=== PATIENT | male | born 1965 | race Caucasian/White ===

== ENCOUNTER → 2017-05-11 | Outpatient (CLI) | payer BC, OTHER ==
[~2017-05-11] VITALS: Ht 182.9 cm; Wt 117.9 kg
[~2017-05-11] MED LIST: ACTO30TA15 PO; ASPI81TA21 PO; FURO40TA2 PO; GLIM4TAB PO; INSUDET SC; LIDOCAINE 2% INJ 100 MG/5 ML SDV (FOR ANES.) As Ordered ONE; LOSA50TA20 PO; MAGN400C3 PO; NS 1,000 ML IV ONE; PROPOFOL 500 MG/50 ML VIAL As Ordered ONE
--- NOTE | 2017-05-11 09:58 | ROOR ---
Patient Name: Miguel Orta Procedure Date: 05/11/2017 9:39 AM Date of : 1965 Age: 51 Room: [facility] Gender: Male Note Status: Finalized Procedure: Total Colonoscopy to Cecum Indications: Screening for colorectal malignant neoplasm Providers: Amado Jesus MD Referring MD: Geovanny Man NP Requesting Provider: Medicines: Monitored Anesthesia Care Complications: No immediate complications. Procedure: Pre-Anesthesia Assessment: - The heart rate, respiratory rate, oxygen saturations, blood pressure, adequacy of pulmonary ventilation, and response to care were monitored throughout the procedure. The Colonoscope was introduced through the anus and advanced to the cecum, identified by appendiceal orifice and ileocecal valve. The colonoscopy was performed without difficulty. The patient tolerated the procedure well. The quality of the bowel preparation was good. Findings: The perianal and digital rectal examinations were normal. Non-bleeding internal hemorrhoids were found during retroflexion. The hemorrhoids were small and Grade I (internal hemorrhoids that do not prolapse). No other significant abnormalities were identified in a careful examination of the remainder of the colon. The exam was otherwise without abnormality on direct and retroflexion views. Impression: - Non-bleeding internal hemorrhoids. - The examination was otherwise normal on direct and retroflexion views. - No specimens collected. - The exam was otherwise normal to the cecum. Recommendation: - Patient has a contact number available for emergencies. The signs and symptoms of potential delayed complications were discussed with the patient. Return to normal activities tomorrow. Written discharge instructions were provided to the patient. - High fiber diet. - Discharge patient to home. - Continue present medications. - Repeat colonoscopy in 10 years for screening purposes. - Return to referring physician. - The findings and recommendations were discussed with the patient's family. Amado Jesus MD Amado Jesus MD 05/11/2017 9:58:39 AM This report has been signed electronically. Number of Addenda: 0 Note Initiated On: 05/11/2017 9:39 AM Estimated Blood Loss: Estimated blood loss: none.
[2017-05-11 10:30] VITALS: BP 137/74
== END | disposition home or self-care (01) ==
LOC: M OPP 08:00
PROVIDERS: ATTEND Internal Medicine Gastroenterology
DX: Z12.11 Encounter for screening for malignant neoplasm of colon (principal); K64.0 First degree hemorrhoids; I10 Essential (primary) hypertension; E78.5 Hyperlipidemia, unspecified; E10.9 Type 1 diabetes mellitus without complications; Q61.2 Polycystic kidney, adult type; Z87.442 Personal history of urinary calculi; Z79.82 Long term (current) use of aspirin; Z79.84 Long term (current) use of oral hypoglycemic drugs; Z79.4 Long term (current) use of insulin; Z79.899 Other long term (current) drug therapy

== ENCOUNTER → 2017-09-12 | Outpatient (CLI) | payer BC, OTHER ==
[~2017-09-12] MED LIST changes: -LIDOCAINE 2% INJ 100 MG/5 ML SDV (FOR ANES.) As Ordered ONE; -NS 1,000 ML IV ONE; -PROPOFOL 500 MG/50 ML VIAL As Ordered ONE
[2017-09-12 13:03] LABS: ALBUMIN 3.9 GM/DL (3.2-5.2); ALBUMIN/GLOBULIN RATIO 1.26 (1.00-1.93); BILIRUBIN,TOTAL 0.4 MG/DL (0.2-1.0); CALCIUM LEVEL 9.1 MG/DL (8.5-10.1); CREATININE FOR GFR 3.27 MG/DL (0.70-1.30); GLOMERULAR FILTRATION RATE 21.1 (>56); MAGNESIUM LEVEL 2.8 MG/DL (1.8-2.4)
[2017-09-12 13:04] LABS: POTASSIUM SERUM 5.2 MEQ/L (3.5-5.1)
[2017-09-13 14:18] LABS: PSA TOTAL 3.1 ng/mL (0.0-4.0)
== END ==
LOC: M LRY 09:57
PROVIDERS: ATTEND Nurse Practitioner Family
DX: E83.42 Hypomagnesemia (principal); Z12.5 Encounter for screening for malignant neoplasm of prostate; E11.9 Type 2 diabetes mellitus without complications; E78.00 Pure hypercholesterolemia, unspecified; I10 Essential (primary) hypertension

== ENCOUNTER → 2019-06-10 | Outpatient (CLI) | payer BC, OTHER ==
[~2019-06-10] MED LIST changes: -LOSA50TA20 PO; +LOSA50TA88 PO
--- NOTE | 2019-06-11 12:08 | REP ---
Bilateral upper extremity arterial and venous Doppler ultrasound: History: Vein mapping study. End-stage renal disease. Pre arteriovenous fistula. Venous findings: There is no evidence of venous thrombosis in either upper extremity. Right upper extremity vein diameter chart: Upper humerus basilic 3.6 mm, cephalic 3.3 mm Lower humerus basilic 2.7 mm, cephalic 2.7 mm Upper forearm basilic 1.8 mm, cephalic 2.4 mm Lower forearm basilic 1.6 mm, cephalic 1.9 mm Median cubital 2.9 mm Left upper extremity vein diameter chart: Upper humerus basilic 2.7 mm, cephalic 0.2 mm Lower humerus basilic 2.1 mm, cephalic 3.4 mm Upper forearm basilic 2.4 mm, cephalic 1.6 mm Lower forearm basilic 2.0 mm, cephalic 2.1 mm Median cubital 2.4 mm Arterial findings: Normal triphasic Doppler wave forms are seen in the arteries of the upper extremities bilaterally. There is no evidence of stenosis or occlusion. Velocity and vessel diameter chart right upper extremity arteries: Axillary artery PSV 129 cm/S, 5.5 mm Brachial artery 141 cm/S, 5.1 mm Proximal radial artery 91 cm/S, 3.0 mm Distal radial artery 103 cm/S, 2.4 mm Proximal ulnar artery 83 cm/S, 2.2 mm Distal ulnar artery 67 cm/S, 2.2 mm Velocity and vessel diameter chart, left upper extremity arteries: Axillary artery 113 cm/S, 6.0 mm Brachial artery 191 cm/S, 4.5 mm Proximal radial artery 111 cm/S, 2.9 mm Distal radial artery 94 cm/S, 1.4 mm Proximal ulnar artery 123 cm/S, 4.3 mm Distal ulnar artery 102 cm/S, 2.3 mm. Electronically Signed by Claudio Rodriguez MD 06/11/2019 09:11 A
== END ==
LOC: M RAD 12:19
PROVIDERS: ATTEND Internal Medicine Nephrology
DX: N18.6 End stage renal disease (principal)

== ENCOUNTER 2019-06-20 08:45 | Day surgery (SDC) | payer BC, OTHER ==
[~2019-06-20] VITALS: Ht 182.9 cm; Wt 122.5 kg
[~2019-06-20 08:45] MED LIST changes: +AMLO10TA PO; -GLIM4TAB PO; +GLIM4TAB5 PO; +HYDR-3910 PO; +PROAAER10 INH; +SIMV40TA20 PO; +TERA2CAP3 PO
[2019-06-20] MEDS ORDERED: NS 1,000 ML IV ONE (10:00)
[2019-06-20] MEDS ORDERED: LIDOCAINE 2% INJ 100 MG/5 ML SDV (FOR ANES.) As Ordered ONE (10:54)
[2019-06-20] MEDS ORDERED: ONDANSETRON 4MG/2ML VIAL (J2405) As Ordered ONE (10:54)
[2019-06-20] MEDS ORDERED: propofoL 200 MG/20 ML VIAL As Ordered ONE (10:54)
[2019-06-20] MEDS ORDERED: MIDAZOLAM INJ 2 MG/2 ML VIAL (J2250) As Ordered ONE (10:55)
[2019-06-20] MEDS ORDERED: fentaNYL 100 MCG/2 ML INJECTION (J3010) As Ordered ONE (10:55)
[2019-06-20] MEDS ORDERED: BUPIVACAINE HCL 0.5% 10 ML VIAL As Ordered ONE (11:38)
[2019-06-20] MEDS ORDERED: LIDOCAINE 2% MDV 20 ML VIAL As Ordered ONE (11:38)
[2019-06-20] MEDS ORDERED: HEPARIN SOD (PORCINE) 5000 UNITS/ML VIAL As Ordered ONE (11:38)
[2019-06-20 13:30] VITALS: BP 172/81
--- NOTE | 2019-06-24 16:19 | ROOPDOC ---
[facility] Report Of Operation Report of Operation DATE OF PROCEDURE: 06/20/2019 PREOPERATIVE DIAGNOSES: Chronic renal insufficiency nearing End-stage renal disease requiring access for renal replacement therapy via hemodialysis POSTOPERATIVE DIAGNOSES: Chronic renal insufficiency nearing End-stage renal disease requiring access for renal replacement therapy via hemodialysis PROCEDURE: Left brachiocephalic autogenous arteriovenous fistula creation. SURGEON: Dr. Carmen Marie MD SOLID W[employer] FACILITY SUPERVISOR: None INDICATION: Patient is a 54-year-old male with chronic renal insufficiency nearing end-stage renal disease. Patient was evaluated for access for renal replacement therapy and the patient wishes to undergo peritoneal dialysis as his primary form of renal replacement therapy. Recommendation was made to undergo creation of a autogenous arteriovenous fistula as well as using his peritoneal dialysis as his primary form of renal replacement therapy. The peritoneal dialysis catheter will be placed as the patient approaches the need for renal replacement therapy The procedure was described and explained to the patient in detail including drawing of pictures demonstrating the procedure and the anatomy. Risks, benefits and alternative treatment options were discussed with the patient. Benefits included but were not limited to having a functioning arteriovenous fistula for hemodialysis access and removal of tunneled central venous catheter once the fistula is successfully being used. Alternative treatment options included but were not limited to no intervention with continued conservative management. Risks included but were not limited to infection, bleeding, failure of arteriovenous to maintain patency with thrombosis, failure of arteriovenous fi stula to mature requiring secondary intervention, steal syndrome, anesthetic complication, bruising, scarring, nerve damage, possible need for transfusion of blood products,, possible need for further open surgical intervention, cerebrovascular accident, myocardial infarction, pulmonary embolus , deep venous thrombosis, reaction or complication from the prepping and draping materials, numbness, tingling, swelling of the extremity, loss of limb, loss of life and poor outcome. Patient's questions were answered. Patient voices understanding of the risks, benefits and alternative treatment options. Patient voices acceptance of these risks, benefits and alternative treatment options and consents to proceed with arterial venous fistula formation. No promises were made to the patient or his family regarding the outcome and/or results of the procedure. ANESTHESIA: Local Mac. IVF: 200 mL ESTIMATED BLOOD LOSS: 20 mL. HEPARIN:None PROTAMINE:None COMPLICATIONS:None DRAINS:None SPECIMENS:None IMPLANTS:None FINDINGS: The cephalic vein was anastomosed to the brachial artery with dual outflow through the cephalic vein into both thek and cephalic veins in the upper arm as well as retrograde flow into the cephalic vein in the forearm. DESCRIPTION OF PROCEDURE: Patient was taken to operating room, placed supine on the operating room table, and the patient was prepped and draped in a standard surgical fashion. A time-out was then conducted by myself and the team members in the room confirming the correct patient, procedure and laterality. A tourniquet was then applied to the left upper arm to dilate the cephalic vein. An incision was then made at the antecubital fossa after the overlying tissue were anesthetized with 1% lidocaine mixed with half percent Marcaine. The cephalic vein and brachial artery were sharply dissected proximally and distally and encircled with vessel loops. The cephalic vein was then transected as far distal as possible with the remnant ligated with a 2-0 silk suture. The cephalic vein was then dilated using heparinized saline. The cephalic vein was brought to the brachial artery and anastomosed to the brachial artery in an end to side fashion using 6-0 Prolene suture after an arteriotomy was made in the brachial artery and elongated with gan scissors. There was good flow noted in the fistula at the completion of the anastomosis using Doppler ultrasound. Hemostasis was obtained after which the incision was closed using 2-0 Vicryl to approximate the deeper layers and the skin was approximated using 3-0 Monocryl in a running subcuticular fashion. Steri-Strips and dressings were applied. The patient tolerated the procedure well. All instrument, sponge and needle counts were correct at the end of the case. There were no complications. Dr. Marie was present for and directed the entire case. Patient was transferred to the recovery room awake, alert, extubated and in stable condition. The left hand was well perfused with 2+ radial and ulnar pulses palpable. Iván Marie MD Jun 20, 2019 09:42
[2019-08-05] MEDS ORDERED: CETI10CH PO (14:31)
[2019-08-05] MEDS ORDERED: CALC1CAP31 PO (14:31)
[2019-08-05] MEDS ORDERED: MAGN500T6 PO (14:31)
== END 2019-06-20 13:39 | disposition home or self-care (01) ==
LOC: M SDC 08:45
PROVIDERS: ATTEND Surgery Vascular Surgery
DX: N18.5 Chronic kidney disease, stage 5 (principal); E11.22 Type 2 diabetes mellitus with diabetic chronic kidney disease; I15.0 Renovascular hypertension; Q61.2 Polycystic kidney, adult type; E78.5 Hyperlipidemia, unspecified; R60.0 Localized edema; Z68.37 Body mass index [BMI] 37.0-37.9, adult; Z79.899 Other long term (current) drug therapy; Z79.82 Long term (current) use of aspirin; Z79.4 Long term (current) use of insulin; Z87.442 Personal history of urinary calculi
CPT/HCPCS: 36821; J2250; J2405; J3010

== ENCOUNTER → 2019-07-04 | Outpatient (REF) | payer OTHER ==
[~2019-07-04] MED LIST changes: +GLIM4TAB PO; -GLIM4TAB5 PO; +SIMV40TA2 PO; -SIMV40TA20 PO
[2019-07-04 18:02] LABS: CHOLESTEROL LEVEL 122 MG/DL (<200); CHOLESTEROL RISK RATIO 3.812 (<5); HDL CHOLESTEROL 32 MG/DL (>40); LDL CHOLESTEROL 46 MG/DL (<100); NON-HDL-C 90 MG/DL; TRIGLYCERIDES LEVEL 221 MG/DL (<150)
[2019-07-07 10:02] LABS: HEPATITIS B SURFACE ANTIBODY NEGATIVE (POSITIVE)
[2019-07-07 10:13] LABS: HEPATITIS B SURFACE ANTIGEN NEGATIVE (NEGATIVE)
[2019-07-07 10:42] LABS: HEPATITIS B CORE ANTIBODY IGM NEGATIVE (NEGATIVE)
== END ==
LOC: M LAB REF 17:14
PROVIDERS: ATTEND Internal Medicine Nephrology
DX: N18.6 End stage renal disease (principal); E78.00 Pure hypercholesterolemia, unspecified

== ENCOUNTER → 2019-08-12 | Outpatient (REF) | payer BC, OTHER ==
[~2019-08-12] MED LIST changes: +CALC1CAP31 PO; +CETI10CH PO; -GLIM4TAB PO; +GLIM4TAB3 PO; +HYDR-4571 PO; +MAGN500T6 PO
[2019-08-13 10:20] LABS: HEPATITIS B CORE ANTIBODY IGM NEGATIVE (NEGATIVE); HEPATITIS B SURFACE ANTIBODY NEGATIVE (POSITIVE); HEPATITIS B SURFACE ANTIGEN NEGATIVE (NEGATIVE)
== END ==
LOC: M LAB REF 13:09
PROVIDERS: ATTEND Internal Medicine Nephrology
DX: N18.6 End stage renal disease (principal)

== ENCOUNTER 2019-08-13 09:46 | Day surgery (SDC) | payer BC, OTHER ==
[~2019-08-13] VITALS: Ht 182.9 cm; Wt 120.7 kg
[~2019-08-13 09:46] MED LIST changes: -HYDR-4571 PO; +LR 1,000 ML IV ONE; +ceFAZolin SOD 2 GM in IV 1 EA IV ONE
[2019-08-13] MEDS ORDERED: dexameTHASONE 4 MG/ML 1ML VIAL (J1100) As Ordered ONE (10:20)
[2019-08-13] MEDS ORDERED: fentaNYL 250 MCG/5 ML INJECTION (J3010) As Ordered ONE (10:20)
[2019-08-13] MEDS ORDERED: ONDANSETRON 4MG/2ML VIAL (J2405) As Ordered ONE (10:20)
[2019-08-13] MEDS ORDERED: PROPOFOL 200 MG/20 ML VIAL As Ordered ONE (10:20)
[2019-08-13] MEDS ORDERED: ROCURONIUM BROMIDE 50 MG/5 ML VIAL As Ordered ONE (10:20)
[2019-08-13] MEDS ORDERED: SUGAMMADEX SODIUM 500 MG/5 ML VIAL (BRIDION) As Ordered ONE (10:20)
[2019-08-13] MEDS ORDERED: LIDOCAINE 2% INJ 100 MG/5 ML SDV (FOR ANES.) As Ordered ONE (10:20)
[2019-08-13] MEDS ORDERED: MIDAZOLAM INJ 2 MG/2 ML VIAL (J2250) As Ordered ONE (10:20)
[2019-08-13] MEDS ORDERED: LIDOCAINE 1% SDV INJ 30 ML VIAL As Ordered ONE (10:59)
[2019-08-13] MEDS ORDERED: HEPARIN SOD (PORCINE) 5000 UNITS/ML VIAL As Ordered ONE (10:59)
[2019-08-13] MEDS ORDERED: CISATRACURIUM 2MG/ML 5ML VIAL As Ordered ONE ×2 (11:26→12:46)
[2019-08-13] MEDS ORDERED: BUPIVACAINE HCL 0.25% 30 ML VIAL As Ordered ONE (13:21)
[2019-08-13] MEDS ORDERED: PHENYLephrine HCL 500 MCG/5 ML (100MCG/ML) SYRINGE (J2370) As Ordered ONE (13:29)
[2019-08-13] MEDS ORDERED: CALCIUM CHLORIDE 10% 1 GM/10 ML SYR As Ordered ONE (13:29)
[2019-08-13] MEDS ORDERED: ePHEDrine SULFATE 25 MG/5 ML(5MG/ML) SYRINGE As Ordered ONE (13:29)
[2019-08-13] MEDS ORDERED: NEOSTIGMINE 10 MG/10 ML VIAL (J2710) As Ordered ONE ×2 (13:30→13:31)
[2019-08-13] MEDS ORDERED: GLYCOPYRROLATE INJ 0.2 MG/ML 2 ML VIAL As Ordered ONE (13:30)
[2019-08-13] MEDS ORDERED: DEXTROSE 50% 50 ML SYRINGE As Ordered ONE (14:07)
[2019-08-13] MEDS ORDERED: oxyCODONE 5MG TAB PO PRN (14:45)
[2019-08-13] MEDS ORDERED: ONDANSETRON 4MG/2ML VIAL (J2405) IV PRN (14:45)
[2019-08-13] MEDS ORDERED: LR 1,000 ML IV SCH (14:45)
[2019-08-13] MEDS ORDERED: ACETAMINOPHEN TAB 650MG DOSE (2X325MG) PO PRN (14:45)
[2019-08-13] MEDS ORDERED: METOCLOPRAMIDE INJ 10MG/2ML VIAL (J2765) IV PRN (14:45)
[2019-08-13] MEDS ORDERED: fentaNYL 100 MCG/2 ML INJECTION (J3010) IV PRN (14:45)
[2019-08-13] MEDS ORDERED: HYDR-4571 PO (14:56)
[2019-08-13 15:33] VITALS: BP 133/63
[2019-08-13] MEDS ORDERED: NORCO, ANEXSIA 5/325MG TABLET (HYDROcodone/ACETAMINOPHEN) PO PRN (15:46)
--- NOTE | 2019-08-13 22:37 | ECGEPIP ---
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 No prior ECG available for comparison at the time of interpretation. Electronically Signed on 08-13-2019 22:36:42 EDT by Andi Alexander
--- NOTE | 2019-08-14 07:22 | RO ---
DATE OF PROCEDURE: 08/13/2019 PREOPERATIVE DIAGNOSIS: Chronic renal failure. POSTOPERATIVE DIAGNOSIS: Chronic renal failure. PROCEDURE PERFORMED: Implantation of continuous ambulatory peritoneal dialysis catheter. SURGEON: Dhiraj French MD LABORER DEMOLITION: ANESTHESIA: General. INDICATIONS FOR PROCEDURE: Patient is 54-year-old man with progressively worsening renal failure, now approaching end stage. He is now for implantation of a continuous ambulatory peritoneal dialysis catheter. OPERATIVE PROCEDURE: Patient was brought to the operating room and placed on the table in a supine position. He was placed under general endotracheal anesthesia. The patient's abdomen was prepped and draped in a sterile fashion. A site was selected in the left upper quadrant, several centimeters above the level of the umbilicus. A short paramedian incision was made on the left side overlying the rectus muscles. This was approximately 3-4 cm in length. The incision was deepened through the subcutaneous tissues using the cautery. The anterior rectus fascia was opened longitudinally and the muscles were spread with a clamp. The posterior fascia was identified and a small opening was made into the peritoneum. A pursestring suture of #2-0 Vicryl was placed. The 62 cm Hal pigtail CAPD catheter was placed over a long stylet and then inserted into the abdomen through this small opening into the peritoneum. This was performed while the patient was in a slight Trendelenburg position and the inferior edge of the opening in the peritoneum was elevated with an Allis clamp. After advancing the catheter perhaps 10-15 cm, the catheter was then slipped into the abdomen off of the stylet. The inner pledget was placed just outside the posterior layer of the rectus sheath. The pursestring suture was then tied down and then tied in a loop about the inner pledget. The rectus muscles were allowed to fall together. Hemostasis was ensured with cautery. The anterior rectus sheath was closed with #0 Vicryl. The catheter was then tunneled laterally and inferiorly to exit through a small stab wound in the skin and the second pledget was placed just beneath the level of the skin. The infusion adapter was applied to the catheter. Approximately 950 mL of saline were then infused through the catheter with the patient in a slight reverse Trendelenburg position. After the fluid had completely infused, the bag was dropped and there was excellent return of approximately 600-700 mL of fluid. While fluid was returning, the subcutaneous tissues at the incision were closed with buried #3-0 chromic and the skin edges approximated with a running #4-0 Vicryl. The catheter was filled with 1 mL at 5000 units/mL heparin and approximately 1.4 mL of sterile saline. A small clamp was applied to the catheter and the catheter was then plugged. Steri-Strips were applied to the incision. 0.25% Marcaine was infiltrated about both of his incisions. A chlorhexidine gluconate OpSite was applied at the catheter exit site and the catheter was coiled on top of this and covered with several 4x4 sponges. An occlusive dressing of tape was applied. The patient tolerated the procedure well. He was awakened in the operating room, extubated and moved to the recovery room in stable condition.
== END 2019-08-13 16:10 | disposition home or self-care (01) ==
LOC: M SDC 09:46
PROVIDERS: ATTEND Surgery
DX: N18.5 Chronic kidney disease, stage 5 (principal); I11.9 Hypertensive heart disease without heart failure; E78.5 Hyperlipidemia, unspecified; E11.9 Type 2 diabetes mellitus without complications; Z79.82 Long term (current) use of aspirin; Z79.899 Other long term (current) drug therapy; Z79.4 Long term (current) use of insulin; Q61.3 Polycystic kidney, unspecified
CPT/HCPCS: 49421; 93005; C1750; J0690; J1100; J2250; J2370; J2405; J2710; J3010

== ENCOUNTER → 2019-09-16 | Outpatient (CLI) | payer BC, OTHER ==
[~2019-09-16] MED LIST changes: +HYDR-4571 PO; -LR 1,000 ML IV ONE; -SIMV40TA2 PO; +SIMV40TA20 PO; -ceFAZolin SOD 2 GM in IV 1 EA IV ONE
--- NOTE | 2019-09-16 20:11 | ECHO ---
DATE OF PROCEDURE: 09/16/2019 REFERRING PHYSICIAN: Marlyn Harris MD INDICATION: Screening for renal transplant. Height 182 cm, weight 114 kg. DIMENSIONS: IVS: 1.2 LV: 4.9 LVPW: 1.3 LA: 3.9 Aorta: 3.6 RV: 4.2 Left atrial volume index: 20 Mitral E wave velocity: 79 A wave: 51 E prime septal: 7.4 E prime lateral: 9.6 FINDINGS: The study is of fair technical quality. The patient is in sinus rhythm. Left ventricle is normal size and systolic function, I estimate left ventricular ejection fraction (LVEF) around 60-65%. Mild left ventricular hypertrophy (LVH) is present. Right ventricle is normal size. Both atria appear normal. Aortic, mitral, tricuspid and pulmonic valves all appear structurally normal. No pericardial effusion is noted. Inferior vena cava is normal size. Aortic root and abdominal aorta appear normal. Aortic arch was not well seen. Doppler interrogation reveals competent aortic valve. There is trace mitral insufficiency. Tricuspid and pulmonic valves are also functionally intact. Mitral inflow pattern and tissue Doppler imaging of mitral annulus revealed probably normal diastolic function even though tissue Doppler velocities of mitral annulus are mildly reduced. CONCLUSIONS: 1. Study is of fair technical quality. 2. Normal LV size with mild left ventricular hypertrophy and normal LV systolic and probably also diastolic function. 3. No significant valvular disease. 4. Normal central venous pressure. 5. Unable to estimate pulmonary artery pressure but no signs to suggest pulmonary hypertension. COMMENT: Subacute bacterial endocarditis (SBE) prophylaxis is not recommended. Overall study most consistent with mild form of hypertensive heart disease.
== END ==
LOC: M CARPUL 10:39
PROVIDERS: ATTEND Transplant Surgery
DX: Z01.818 Encounter for other preprocedural examination (principal)

== ENCOUNTER → 2019-09-17 | Outpatient (CLI) | payer OTHER ==
--- NOTE | 2019-09-17 13:35 | REP ---
Clinical: Polycystic kidney disease for renal transplant. Technique: Axial noncontrast images from the lung bases to the pubic symphysis with coronal and sagittal re-formations. Comparison: 02/05/2014. Findings: Lung bases are clear. Visualized heart and pericardium normal. 4.0 cm benign appearing cyst in the lateral segment left lobe of the liver has increased since prior examination. Few smaller scattered hepatic cysts up to 9 mm are also identified and appear essentially stable. Spleen, pancreas, gallbladder, and bilateral adrenal glands are normal for noncontrast evaluation. Kidneys demonstrate innumerable simple and complex/proteinaceous cysts without perinephric stranding or hydronephrosis. There is a 15 mm calculus in the left ureteropelvic junction without associated hydronephrosis. The enteric system is without obstruction or acute inflammatory process. Scattered diverticula noted without acute diverticulitis. Normal terminal ileum and appendix identified in the right lower quadrant. Peritoneal dialysis catheter identified within the left shawene pelvis. Prostate gland is moderately enlarged with mild mass effect than on the bladder. The bladder itself is otherwise unremarkable. No ascites. No free air. No intraperitoneal or retroperitoneal adenopathy. Atherosclerotic changes to the aorta and vasculature noted without aneurysm. Musculoskeletal structures demonstrate degenerative changes. Impression: 1. Polycystic kidney disease with few hepatic cysts also noted. 2. A 15 mm calculus in the left UPJ without associated hydronephrosis or perinephric stranding. 3. Prostatomegaly. 4. Few scattered colonic diverticula without acute diverticulitis. Electronically Signed by Barry Montoya MD 09/17/2019 01:26 P
== END ==
LOC: M RAD 12:40
PROVIDERS: ATTEND Transplant Surgery
DX: Z01.818 Encounter for other preprocedural examination (principal); N18.6 End stage renal disease

== ENCOUNTER → 2020-01-08 | Outpatient (CLI) | payer BC, OTHER, MEDICARE ==
[~2020-01-08] MED LIST changes: -GLIM4TAB3 PO; +GLIM4TAB5 PO
--- NOTE | 2020-01-09 08:45 | REP ---
MR angiography the brain without contrast: History: End-stage renal disease. Pre transplant workup. Rule out aneurysm. Technique: 3-D [id number] MR angiography of the brain is acquired in the usual fashion and maximal intensity projection images were generated in rotational format about the vertical and horizontal axes. In addition, source axial T1-weighted images are viewed in cine mode. MR angiographic findings: Incidental note is made of low T1 signal intensity in the distribution of the right frontal lobe suggesting an infarction or subarachnoid cyst. Routine brain MRI study was recommended. This was accomplished at this setting and is dictated separately. The distal vertebral arteries are patent and co-dominant. Basilar artery is a little tortuous but widely patent. The posterior cerebral and superior cerebellar vessels are normal and symmetric. The distal internal carotid arteries are unremarkable. Anterior and middle cerebral arteries appear intact. There is no visible monet aneurysm or arteriovenous malformation. Impression: Encephalomalacia apparent in the right frontal lobe, otherwise unremarkable MR angiography the brain. Electronically Signed by Claudio Rodriguez MD 01/09/2020 08:36 A
--- NOTE | 2020-01-09 08:54 | REP ---
MRI BRAIN WITHOUT CONTRAST: HISTORY: Dependence on renal dialysis. Abnormality noted on MR angiography of the brain. No prior central nervous system imaging. TECHNIQUE: Axial and sagittal imaging planes are utilized for T1 and T2-weighted scans. Sequences include spin-echo, fast spin echo, FLAIR, and diffusion weighted sequences. MRI findings: No bony calvarial defect is appreciated. There is no evidence of intraorbital abnormality. Paranasal sinuses appear to be clear. Craniocervical junction and upper cervical cord are normal in appearance. There is a large well-defined area of old encephalomalacia in the right frontal lobe with slight enlargement of the right frontal horn of the lateral ventricle. This is consistent with an old infarction. In addition, there is a small lacunar infarct in the right basal ganglia and another in the dentate nucleus of the left basal ganglia. These are approximately 5 mm in size. There is no evidence of intracranial mass. No evidence of hemorrhage is seen. Diffusion weighted scans show no evidence of restricted diffusion to suggest acute ischemia. 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 Bilateral old lacunar infarcts. There are minimal small vessel changes. No acute intracranial abnormality. Electronically Signed by Claudio Rodriguez MD 01/09/2020 09:22 A
== END ==
LOC: M RAD 13:53
PROVIDERS: ATTEND Internal Medicine Nephrology
DX: Z01.818 Encounter for other preprocedural examination (principal); N18.6 End stage renal disease; Q18.6 Macrocheilia; Z86.73 Personal history of transient ischemic attack (TIA), and cerebral infarction without residual deficits; G93.89 Other specified disorders of brain

== ENCOUNTER → 2020-02-21 | Outpatient (CLI) | payer BC, OTHER, MEDICARE ==
[~2020-02-21] MED LIST changes: +MAGN50TA PO; +RENV2TAB PO; +TRAZ-252 PO; +VITA50005 PO; +[UNRECOGNIZED DRUG - CODE] PO
== END ==
LOC: M LABSMTC 08:48
PROVIDERS: ATTEND Anesthesiology
DX: Z01.818 Encounter for other preprocedural examination (principal); Z11.59 Encounter for screening for other viral diseases

== ENCOUNTER 2020-02-24 11:06 | Day surgery (SDC) | payer BC, OTHER, MEDICARE ==
[~2020-02-24] VITALS: Ht 182.9 cm; Wt 116.6 kg
[2020-02-24] MEDS ORDERED: SLF 3 ML SYR IV PRN (11:45)
[2020-02-24] MEDS ORDERED: MIDAZOLAM INJ 2MG/2ML VIAL (J2250 PER 1MG) As Ordered ONE ×2 (12:49→13:10)
[2020-02-24] MEDS ORDERED: LIDOCAINE VISCOUS 2% SOLN 15ML UDC As Ordered ONE ×2 (12:50→13:09)
[2020-02-24] MEDS ORDERED: LIDOCAINE VISCOUS 2% SOLN 15ML UDC MT ONE (13:45)
[2020-02-24] MEDS ORDERED: NS 1,000 ML IV SCH (13:45)
[2020-02-24] MEDS ORDERED: MIDAZOLAM INJ 2MG/2ML VIAL (J2250 PER 1MG) IV ONE ×2 (13:45)
[2020-02-24 13:50] VITALS: BP 132/61
[2020-02-24] MEDS ORDERED: SLF 3 ML SYR IV SCH (14:00)
--- NOTE | 2020-02-24 14:07 | T-ECHO ---
DATE OF PROCEDURE: 02/24/2020 INDICATION: Cryptogenic stroke. REFERRING PHYSICIAN: Andi Alexander MD PREPROCEDURE DIAGNOSIS: Cryptogenic stroke. POSTPROCEDURE DIAGNOSIS: Cryptogenic stroke, normal transesophageal echocardiogram (MADELINE). Negative bubble study for right to left intracardiac or intrathoracic shunting. PROCEDURE PERFORMED: Transesophageal echocardiogram with saline bubble study. PROCEDURE PERFORMED BY: Andi Alexander MD BUFFING WHEEL FORMER MACHINE: None. IV SEDATION: Midazolam 4 mg IV. COMPLICATIONS: None. PROCEDURE DESCRIPTION: The rhythm was sinus. The patient received viscus lidocaine to gargle and swallow. He received a total of midazolam 4 mg IV for light IV sedation. Esophageal intubation was accomplished without difficulty using a Theodore transesophageal echocardiogram probe. The left ventricle appeared to be normal in size and wall thickening. LV systolic function was normal. Left ventricular ejection fraction (LVEF) 65% by visual estimate. The right ventricle appeared normal in size and systolic function. No pericardial effusion. Atrial septum was intact anatomically and by color flow Doppler. Saline bubble study was performed using 8 mL of normal saline with 1 mL of the patient's own blood withdrawn from the IV site and 1 mL of air. This was then agitated back and forth between two 10 mL syringes via a 3-way stopcock. The saline bubble contrast was injected during Valsalva maneuver and as soon as bubbles appeared in the right atrium the patient released a Valsalva maneuver. No saline bubbles were seen traversing the atrial septum or entering the left atrium. All the cardiac valves were structurally and functionally normal. Specifically, the aortic valve was 3-cusp and without regurgitation or thickening or calcification. The mitral leaflets appeared structurally normal. Very mild mitral regurgitation was present and within physiologic limits. Tricuspid and pulmonic valves were normal. The pulmonic valve was only moderately well visualized. No color flow Doppler evidence for patent ductus arteriosus detected. No pericardial effusion. CONCLUSIONS: 1. Normal MADELINE. LVEF 65% by visual estimate. 2. No definite cardiac source of systemic embolism. 3. Bubble study negative for detection of r to left intracardiac or extracardiac shunting. 4. Normal distal aortic arch and descending thoracic aorta.
== END 2020-02-24 14:00 | disposition home or self-care (01) ==
LOC: M SDC 11:06
PROVIDERS: ATTEND Internal Medicine Cardiovascular Disease
DX: I63.9 Cerebral infarction, unspecified (principal); R94.31 Abnormal electrocardiogram [ECG] [EKG]; I11.0 Hypertensive heart disease with heart failure; E11.9 Type 2 diabetes mellitus without complications; N18.6 End stage renal disease; E78.2 Mixed hyperlipidemia; E66.09 Other obesity due to excess calories; Z79.899 Other long term (current) drug therapy
CPT/HCPCS: 93312; 93320; 93325; J2250

== ENCOUNTER → 2020-03-06 | Outpatient (CLI) | payer BC, OTHER, MEDICARE ==
[~2020-03-06] MED LIST changes: +ASPI81TA85 PO; +COLA100C5 PO; +LOSA25TA14 PO; +MUPI2OI EXT; +heparin PD
== END ==
LOC: M LABSMTC 09:10
PROVIDERS: ATTEND Anesthesiology
DX: Z01.818 Encounter for other preprocedural examination (principal); Z11.59 Encounter for screening for other viral diseases

== ENCOUNTER 2020-03-09 10:38 | Day surgery (SDC) | payer BC, OTHER, MEDICARE ==
[~2020-03-09] VITALS: Ht 182.9 cm; Wt 114.9 kg
[~2020-03-09 10:38] MED LIST changes: +LIDOCAINE 1% MDV 20ML VIAL SQ PRN; +LR 1,000 ML IV SCH; +MIDAZOLAM INJ 2MG/2ML VIAL (J2250 PER 1MG) As Ordered ONE; +NS 1,000 ML IV SCH; +ceFAZolin SOD 2 GM in IV 1 EA IV ONE; +fentaNYL 100 MCG/2 ML INJECTION (J3010) As Ordered ONE
[2020-03-09] MEDS ORDERED: LIDOCAINE 1% MDV 20ML VIAL As Ordered ONE (11:48)
[2020-03-09] MEDS ORDERED: D5W/0.2% SODIUM CHLORIDE 1,000 ML IV ONE (12:00)
[2020-03-09] MEDS ORDERED: ONDANSETRON 4MG/2ML VIAL As Ordered ONE (13:02)
--- NOTE | 2020-03-09 13:47 | RO ---
DATE OF PROCEDURE: 03/09/2020 PREOPERATIVE DIAGNOSIS: Cryptogenic stroke. POSTOPERATIVE DIAGNOSIS: Cryptogenic stroke. PROCEDURE PERFORMED: Implantation of a Medtronic implantable loop recorder. SURGEON: Andi Alexander MD CUSHION MAT MAKER: None. ANESTHESIA: Local/monitored anesthesia care. FINDINGS: Cryptogenic stroke. No specimens. Estimated blood loss: Less than 3 mL. No blood products replaced. No drains. No complications. DESCRIPTION OF PROCEDURE: The patient was prepped and draped over the left anterior chest. Lidocaine 1% was used for local anesthetic. An incision approximately 1 cm in length was made with a #15 blade at the left 4th interspace approximately 1 inch lateral to the left parasternal border. The guide on the insertion tool was then placed into the incision and advanced in a left lateral-caudal direction parallel to the skin within the subcutaneous fat. The insertion tool was rotated 180 degrees. The plunger was then placed into the insertion tool and used to advance the implantable loop recorder into the subcutaneous fat. The plunger was then removed and then the insertion tool was removed leaving the loop recorder in situ. The initial R wave measured 0.42 mV. The incision was temporarily approximated using a subcuticular #4-0 Biosyn suture placed subcuticular with free ends protruding from the skin 1 cm from the ends of the incision on either side. Next, three layers of Dermabond was applied. The Biosyn suture was then removed entirely by pulling it through the incision. The patient tolerated the procedure well without any immediate complications. The implantable loop recorder implanted was a Progeniq Reveal LINQ, model LNQ11 with serial #[id number].
[2020-03-09 14:00] VITALS: BP 142/72
== END 2020-03-09 14:16 | disposition home or self-care (01) ==
LOC: M SDC 10:38
PROVIDERS: ATTEND Internal Medicine Cardiovascular Disease
DX: I63.9 Cerebral infarction, unspecified (principal); I10 Essential (primary) hypertension; E78.5 Hyperlipidemia, unspecified; E11.9 Type 2 diabetes mellitus without complications; Z86.73 Personal history of transient ischemic attack (TIA), and cerebral infarction without residual deficits; N18.9 Chronic kidney disease, unspecified; Z79.4 Long term (current) use of insulin; Z79.82 Long term (current) use of aspirin; Z79.84 Long term (current) use of oral hypoglycemic drugs; Z79.899 Other long term (current) drug therapy
CPT/HCPCS: 33285; 36415; 84132; C1764; J0690; J2250; J2405; J3010

== ENCOUNTER → 2020-03-18 | Outpatient (CLI) | payer BC, MEDICARE ==
[~2020-03-18] MED LIST changes: -LIDOCAINE 1% MDV 20ML VIAL SQ PRN; -LR 1,000 ML IV SCH; -MIDAZOLAM INJ 2MG/2ML VIAL (J2250 PER 1MG) As Ordered ONE; -NS 1,000 ML IV SCH; -ceFAZolin SOD 2 GM in IV 1 EA IV ONE; -fentaNYL 100 MCG/2 ML INJECTION (J3010) As Ordered ONE
--- NOTE | 2020-03-19 06:18 | REP ---
Clinical: Renal transplant evaluation. Technique: Axial noncontrast images from the lung bases to the pubic symphysis with coronal and sagittal re-formations. Comparison: 09/17/2019. Findings: The lung bases are clear. Visualized heart and pericardium are normal. Stable scattered hepatic cysts are again identified including 4.3 cm cyst in the medial left hepatic lobe. Spleen, pancreas, gallbladder, and bilateral adrenal glands are normal. [place] kidneys again demonstrate polycystic kidney disease without acute perinephric stranding or hydroureteronephrosis. A presumed chronic obstructing 15 mm calculus is identified with in the left ureteropelvic junction along with 3 mm nonobstructing left intrarenal calculus. The enteric system is without obstruction or acute inflammatory process. Few scattered colonic diverticula noted without acute diverticulitis. Evidence for with catheter identified in the mid to lower pelvic cavity and mild amount of residual peritoneal fluid noted. No free air. No significant adenopathy or obvious mass lesion. Pelvis demonstrates normal bladder and mild prostatomegaly. Mild/early moderate atherosclerotic changes to the abdominal aorta and branch vessels noted. Surrounding musculoskeletal structures demonstrate age-related changes without focal osseous abnormality. Impression: 1. 15 mm calculus in the left ureteropelvic junction without associated acute perinephric stranding or hydronephrosis. 2. Polycystic kidney disease including scattered hepatic cysts measuring up to 4.3 cm. 3. Mild/moderate atherosclerotic disease. Electronically Signed by Barry Montoya MD 03/19/2020 06:10 A
== END ==
LOC: M RAD 07:24
DX: Z01.818 Encounter for other preprocedural examination (principal); Q63.1 Lobulated, fused and horseshoe kidney; K76.89 Other specified diseases of liver; N20.0 Calculus of kidney; Z76.82 Awaiting organ transplant status

== ENCOUNTER 2021-05-29 23:44 | Emergency (ER) | payer BC, MEDICARE ==
[~2021-05-29] VITALS: Ht 182.9 cm; Wt 110.2 kg
[~2021-05-29 23:44] MED LIST changes: -ASPI81TA85 PO; +ASPI81TA86 PO; +ERGO500029 PO; -VITA50005 PO
[2021-05-29 23:45] VITALS: BP 160/85
[2021-05-29] MEDS ORDERED: CARV6.25 PO (23:53)
[2021-05-29] MEDS ORDERED: TACR5CAP4 PO (23:53)
== END 2021-05-30 02:32 | disposition left against medical advice (07) ==
LOC: M ED 23:44
DX: Z53.21 Procedure and treatment not carried out due to patient leaving prior to being seen by health care provider (principal)

== ENCOUNTER → 2021-06-14 | Outpatient (REF) | payer BC, MEDICARE ==
[~2021-06-14] MED LIST changes: +CARV6.25 PO; +TACR5CAP4 PO
== END ==
LOC: M LAB REF 16:48
PROVIDERS: ATTEND Internal Medicine Nephrology
DX: E11.22 Type 2 diabetes mellitus with diabetic chronic kidney disease (principal); Q61.2 Polycystic kidney, adult type; Z94.0 Kidney transplant status

== ENCOUNTER → 2021-08-30 | Outpatient (REF) | payer BC, OTHER, MEDICARE ==
[~2021-08-30] MED LIST changes: +DOCU250C63 PO; +LOSA25TA13 PO; -LOSA25TA14 PO; +LOSA50TA28 PO; -LOSA50TA88 PO; -[UNRECOGNIZED DRUG - CODE] PO
== END ==
LOC: M LAB REF 13:19
PROVIDERS: ATTEND Nurse Practitioner Family
DX: Z94.0 Kidney transplant status (principal)

== ENCOUNTER 2021-10-03 07:36 | Outpatient (CLI) | payer MEDICARE, BC, OTHER ==
[~2021-10-03] VITALS: Ht 182.9 cm; Wt 110.0 kg
[~2021-10-03 07:36] MED LIST changes: -DOCU250C63 PO; -LOSA25TA13 PO; +LOSA25TA14 PO; -LOSA50TA28 PO; +LOSA50TA88 PO; +[UNRECOGNIZED DRUG - CODE] PO
[2021-10-03 07:45] VITALS: BP 144/65
[2021-10-03] MEDS ORDERED: BELATACEPT IV ONE (08:00)
[2021-10-03] MEDS ORDERED: NS IV ONE (08:00)
[2021-10-03 09:27] VITALS: BP 118/60
== END 2021-10-03 09:30 | disposition home or self-care (01) ==
LOC: M INFU 07:36
PROVIDERS: ATTEND Internal Medicine Nephrology
DX: Z94.0 Kidney transplant status (principal)
CPT/HCPCS: 83735; 96365; J0485

== ENCOUNTER → 2021-10-03 | Outpatient (REF) | payer BC, OTHER, MEDICARE | LOC: M LAB REF 13:57 | PROVIDERS: ATTEND Nurse Practitioner Family | DX: E83.42 Hypomagnesemia (principal) ==

== ENCOUNTER → 2021-10-05 | Outpatient (CLI) | payer MEDICARE, BC, OTHER ==
--- NOTE | 2021-10-05 09:04 | REP ---
INDICATION: PAIN IN LEFT THIGH COMPARISON: None. TECHNIQUE: Lopez scale and color Doppler evaluation using linear high frequency transducer. FINDINGS: Ultrasound examination of the left lower extremity deep venous structures from the common femoral vein through the popliteal vein demonstrates normal compressibility, flow and wave patterns in response to respiration and augmentation. Compressibility to the posterior tibial vein and peroneal vein noted. There is no evidence for deep venous thrombosis. Contralateral CFV is patent and normal. IMPRESSION: No evidence for deep venous thrombosis. <Electronically signed by Barry Montoya > 10/05/21 0900
== END ==
LOC: M RAD 07:31
PROVIDERS: ATTEND Nurse Practitioner Family
DX: M79.652 Pain in left thigh (principal)

== ENCOUNTER → 2021-10-13 | Outpatient (CLI) | payer MEDICARE, BC, OTHER ==
[~2021-10-13] MED LIST changes: +PROHANCE 279.3MG/ML 15ML VIAL As Ordered ONE; +PROHANCE 279.3MG/ML 5ML VIAL As Ordered ONE
--- NOTE | 2021-10-13 15:51 | REP ---
INDICATION: PAIN LT THIGH. COMPARISON: None. TECHNIQUE: Pre and post contrast 3T MRI of the left femur was performed utilizing various sequences. Gadolinium utilized: 10 cc ProHance FINDINGS: The cortical and marrow signal seen throughout the left femur is within normal limits. There is no evidence of a mass or mass effect. There is T2 hyper signal seen in the trochanteric tendono bursal region with a small fluid collection seen in conjunction with this. This measures approximately a cm. Gadolinium-enhanced imaging shows some enhancement of the region. The signal and morphologic appearance throughout the musculature is within normal limits. There is no abnormal intracompartmental or extra compartmental fluid collection or mass. All adipose tissue is seen to suppress normally on fat suppression sequences. All imaged flexor and extensor tendons are intact and of normal appearing low signal throughout. There is no abnormal periosteal signal, enhancement, or thickening. There is no evidence of a hip joint or knee joint effusion. IMPRESSION: There is evidence of trochanteric tendono bursitis. The examination is otherwise unremarkable. <Electronically signed by Moncho Billings > 10/13/21 9101
== END ==
LOC: M RAD 13:11
PROVIDERS: ATTEND Nurse Practitioner Family
DX: M79.652 Pain in left thigh (principal)
CPT/HCPCS: 73720; A9576

== ENCOUNTER 2021-10-31 07:38 | Outpatient (CLI) | payer MEDICARE, BC, OTHER ==
[~2021-10-31] VITALS: Ht 182.9 cm; Wt 110.0 kg
[~2021-10-31 07:38] MED LIST changes: +BELATACEPT IV ONE; +DOCU250C63 PO; +LOSA25TA13 PO; -LOSA25TA14 PO; +LOSA50TA28 PO; -LOSA50TA88 PO; +NS IV ONE; -PROHANCE 279.3MG/ML 15ML VIAL As Ordered ONE; -PROHANCE 279.3MG/ML 5ML VIAL As Ordered ONE; -[UNRECOGNIZED DRUG - CODE] PO
[2021-10-31 07:45] VITALS: BP 133/61
[2021-10-31 08:52] VITALS: BP 138/67
== END 2021-10-31 08:55 ==
LOC: M INFU 07:38
PROVIDERS: ATTEND Internal Medicine Nephrology
DX: Z94.0 Kidney transplant status (principal)
CPT/HCPCS: 96365; J0485

== ENCOUNTER → 2021-12-01 | Outpatient (CLI) | payer BC, OTHER, MEDICARE ==
[~2021-12-01] MED LIST changes: -BELATACEPT IV ONE; -NS IV ONE
== END ==
LOC: M WUC 10:40
PROVIDERS: ATTEND Physician Assistant
DX: J20.9 Acute bronchitis, unspecified (principal); R06.2 Wheezing

== ENCOUNTER 2021-12-06 07:52 | Outpatient (CLI) | payer BC, OTHER, MEDICARE ==
[~2021-12-06] VITALS: Ht 182.9 cm; Wt 113.6 kg
[~2021-12-06 07:52] MED LIST changes: +BELATACEPT IV ONE; +NS IV ONE
[2021-12-06] MEDS ORDERED: NS IV ONE (08:00)
[2021-12-06] MEDS ORDERED: BELATACEPT IV ONE (08:00)
[2021-12-06 08:09] VITALS: BP 154/69
[2021-12-06 09:45] VITALS: BP 151/68
== END 2021-12-06 09:45 | disposition home or self-care (01) ==
LOC: M INFU 07:52
PROVIDERS: ATTEND Internal Medicine Nephrology
DX: Z94.0 Kidney transplant status (principal)
CPT/HCPCS: 96365; J0485

== ENCOUNTER → 2021-12-07 | Outpatient (CLI) | payer BC, OTHER, MEDICARE ==
[~2021-12-07] MED LIST changes: -BELATACEPT IV ONE; -NS IV ONE
== END ==
LOC: M RAD 17:09
PROVIDERS: ATTEND Nurse Practitioner Family
DX: R91.8 Other nonspecific abnormal finding of lung field (principal); K76.89 Other specified diseases of liver; J18.9 Pneumonia, unspecified organism; R05.9 Cough, unspecified

== ENCOUNTER → 2021-12-28 | Outpatient (CLI) | payer BC, OTHER, MEDICARE ==
[2021-12-28 11:34] LABS: APPEARANCE, URINE CLEAR (CLEAR); BACTERIA, URINE AUTO NEGATIVE (NEGATIVE); BILIRUBIN, URINE AUTO NEGATIVE (NEGATIVE); BLOOD, URINE BLOOD NEGATIVE (NEGATIVE); COLOR, URINE STRAW (YELLOW); GLUCOSE, URINE (UA) AUTO 1+ mg/dL (NEGATIVE); KETONE, URINE AUTO NEGATIVE (NEGATIVE); LEUKOCYTE ESTERASE, URINE AUTO NEGATIVE (NEGATIVE); NITRITE, URINE AUTO NEGATIVE (NEGATIVE); PROTEIN, URINE AUTO NEGATIVE (NEGATIVE); RBC, URINE AUTO 0 /HPF (0-3); SPECIFIC GRAVITY URINE AUTO 1.009 (1.002-1.035); SQUAMOUS EPITHELIAL CELL UR AU 0 /HPF (0-6); UROBILINOGEN, URINE AUTO 0.2 mg/dL (0.0-2.0); WBC, URINE AUTO 0 /HPF (0-3)
[2021-12-28 11:41] LABS: BASO % 0.6 % (0.0-1.0); EOS % 0.6 % (0.0-3.0); HEMATOCRIT 44.7 % (42.0-52.0); HEMOGLOBIN 14.9 g/dl (13.5-17.5); LYMPH # 0.3 10^3/uL (1.5-5.0); LYMPH % 18.4 % (24.0-44.0); MEAN CORPUSCULAR HEMOGLOBIN 33.8 pg (27.0-33.0); MEAN CORPUSCULAR HGB CONC 33.3 g/dl (32.0-36.5); MEAN CORPUSCULAR VOLUME 101.4 fl (80.0-96.0); MONO # 0.2 10^3/uL (0.0-0.8); MONO % 9.2 % (2.0-8.0); NEUTROPHILS # 1.2 10^3/uL (1.5-8.5); NEUTROPHILS % 68.3 % (36.0-66.0); PLATELET COUNT, AUTOMATED 174 10^3/uL (150-450); RED BLOOD COUNT 4.41 10^6/uL (4.30-6.10); WHITE BLOOD COUNT 1.7 10^3/uL (4.0-10.0)
[2021-12-28 11:56] LABS: CREATININE,RANDOM URINE 43.3 MG/DL; TOTAL PROTEIN,RANDOM URINE 15.6 MG/DL (0.0-12.0)
[2021-12-28 12:07] LABS: ALBUMIN 3.6 GM/DL (3.2-5.2); CALCIUM LEVEL 9.1 MG/DL (8.5-10.1); CREATININE FOR GFR 1.34 MG/DL (0.70-1.30); GLOMERULAR FILTRATION RATE 58.3 (>56); MAGNESIUM LEVEL 2.3 MG/DL (1.8-2.4); PHOSPHORUS LEVEL 3.7 MG/DL (2.5-4.9); POTASSIUM SERUM 4.5 MEQ/L (3.5-5.1)
[2021-12-30 16:09] LABS: CMV QUANT DNA PCR (PLASMA) Negative (Negative)
== END ==
LOC: M LAB 10:33
PROVIDERS: ATTEND Internal Medicine
DX: Z94.0 Kidney transplant status (principal); N18.5 Chronic kidney disease, stage 5; D84.9 Immunodeficiency, unspecified; Z79.899 Other long term (current) drug therapy

== ENCOUNTER 2022-01-03 08:03 | Outpatient (CLI) | payer BC, OTHER, MEDICARE ==
[~2022-01-03] VITALS: Ht 182.9 cm; Wt 113.6 kg
[~2022-01-03 08:03] MED LIST changes: +BELATACEPT IV ONE; +NS IV ONE
[2022-01-03 08:54] VITALS: BP 175/88
[2022-01-03 10:16] VITALS: BP 163/76
== END 2022-01-03 10:15 | disposition home or self-care (01) ==
LOC: M INFU 08:03
PROVIDERS: ATTEND Internal Medicine Nephrology
DX: Z94.0 Kidney transplant status (principal)
CPT/HCPCS: 96365; J0485

== ENCOUNTER → 2022-01-03 | Outpatient (CLI) | payer BC, OTHER, MEDICARE ==
[2022-01-03 08:57] LABS: HEMATOCRIT 43.1 % (42.0-52.0); HEMOGLOBIN 14.2 g/dl (13.5-17.5); MEAN CORPUSCULAR HEMOGLOBIN 34.1 pg (27.0-33.0); MEAN CORPUSCULAR HGB CONC 32.9 g/dl (32.0-36.5); MEAN CORPUSCULAR VOLUME 103.4 fl (80.0-96.0); PLATELET COUNT, AUTOMATED 116 10^3/uL (150-450); RED BLOOD COUNT 4.17 10^6/uL (4.30-6.10); WHITE BLOOD COUNT 1.5 10^3/uL (4.0-10.0)
[2022-01-03 09:00] LABS: APPEARANCE, URINE CLEAR (CLEAR); BACTERIA, URINE AUTO NEGATIVE (NEGATIVE); BILIRUBIN, URINE AUTO NEGATIVE (NEGATIVE); BLOOD, URINE BLOOD NEGATIVE (NEGATIVE); COLOR, URINE STRAW (YELLOW); GLUCOSE, URINE (UA) AUTO 3+ mg/dL (NEGATIVE); KETONE, URINE AUTO NEGATIVE (NEGATIVE); LEUKOCYTE ESTERASE, URINE AUTO NEGATIVE (NEGATIVE); NITRITE, URINE AUTO NEGATIVE (NEGATIVE); PROTEIN, URINE AUTO NEGATIVE (NEGATIVE); RBC, URINE AUTO 0 /HPF (0-3); SPECIFIC GRAVITY URINE AUTO 1.018 (1.002-1.035); SQUAMOUS EPITHELIAL CELL UR AU 0 /HPF (0-6); UROBILINOGEN, URINE AUTO 0.2 mg/dL (0.0-2.0); WBC, URINE AUTO 0 /HPF (0-3)
[2022-01-03 09:20] LABS: ALBUMIN 3.4 GM/DL (3.2-5.2); CALCIUM LEVEL 8.9 MG/DL (8.5-10.1); CREATININE FOR GFR 1.4 MG/DL (0.70-1.30); GLOMERULAR FILTRATION RATE 55.4 (>56); MAGNESIUM LEVEL 2.3 MG/DL (1.8-2.4); PHOSPHORUS LEVEL 2.4 MG/DL (2.5-4.9); POTASSIUM SERUM 4.6 MEQ/L (3.5-5.1)
[2022-01-03 09:26] LABS: ATYPICAL LYMPH 6 % (0-5); BASOPHILS 1 % (0-1); EOSINOPHILS 3 % (0-3); LYMPHOCYTES 17 % (16-44); METAMYELOCYTES 2 % (0-0); MONOCYTES 2 % (0-5); MYELOCYTES 1 % (0-0); NEUTROPHILS 61 % (28-66)
[2022-01-03 09:27] LABS: ANISOCYTOSIS 2+; PLATELET ESTIMATE DECREASED (NORMAL)
[2022-01-03 09:29] LABS: TOXIC GRANULATION 1+
[2022-01-03 09:31] LABS: CREATININE,RANDOM URINE 45.5 MG/DL; TOTAL PROTEIN,RANDOM URINE 20.4 MG/DL (0.0-12.0)
[2022-01-05 14:14] LABS: CMV QUANT DNA PCR (PLASMA) Positive < 200 IU/mL (Negative)
== END ==
LOC: M LAB 08:11
PROVIDERS: ATTEND Internal Medicine
DX: Z94.0 Kidney transplant status (principal); N18.5 Chronic kidney disease, stage 5; D84.9 Immunodeficiency, unspecified; Z79.899 Other long term (current) drug therapy

== ENCOUNTER → 2022-01-10 | Outpatient (CLI) | payer BC, OTHER, MEDICARE ==
[~2022-01-10] MED LIST changes: -BELATACEPT IV ONE; -NS IV ONE
[2022-01-10 10:39] LABS: APPEARANCE, URINE CLEAR (CLEAR); BACTERIA, URINE AUTO NEGATIVE (NEGATIVE); BILIRUBIN, URINE AUTO NEGATIVE (NEGATIVE); BLOOD, URINE BLOOD 1+ (NEGATIVE); COLOR, URINE YELLOW (YELLOW); GLUCOSE, URINE (UA) AUTO 3+ mg/dL (NEGATIVE); KETONE, URINE AUTO NEGATIVE (NEGATIVE); LEUKOCYTE ESTERASE, URINE AUTO NEGATIVE (NEGATIVE); NITRITE, URINE AUTO NEGATIVE (NEGATIVE); PROTEIN, URINE AUTO 1+ mg/dL (NEGATIVE); RBC, URINE AUTO 1 /HPF (0-3); SPECIFIC GRAVITY URINE AUTO 1.014 (1.002-1.035); SQUAMOUS EPITHELIAL CELL UR AU 0 /HPF (0-6); UROBILINOGEN, URINE AUTO 0.2 mg/dL (0.0-2.0); WBC, URINE AUTO 2 /HPF (0-3)
[2022-01-10 10:43] LABS: BASO % 0.9 % (0.0-1.0); EOS % 3.5 % (0.0-3.0); HEMATOCRIT 44.1 % (42.0-52.0); HEMOGLOBIN 14.4 g/dl (13.5-17.5); LYMPH # 0.2 10^3/uL (1.5-5.0); LYMPH % 19.3 % (24.0-44.0); MEAN CORPUSCULAR HEMOGLOBIN 33.6 pg (27.0-33.0); MEAN CORPUSCULAR HGB CONC 32.7 g/dl (32.0-36.5); MONO # 0.2 10^3/uL (0.0-0.8); MONO % 14.9 % (2.0-8.0); NEUTROPHILS % 60.5 % (36.0-66.0); PLATELET COUNT, AUTOMATED 172 10^3/uL (150-450); RED BLOOD COUNT 4.28 10^6/uL (4.30-6.10); WHITE BLOOD COUNT 1.1 10^3/uL (4.0-10.0)
[2022-01-10 11:10] LABS: ALBUMIN 3.5 GM/DL (3.2-5.2); CALCIUM LEVEL 8.9 MG/DL (8.5-10.1); CREATININE FOR GFR 1.5 MG/DL (0.70-1.30); GLOMERULAR FILTRATION RATE 51.2 (>56); MAGNESIUM LEVEL 2.1 MG/DL (1.8-2.4); PHOSPHORUS LEVEL 2.9 MG/DL (2.5-4.9); POTASSIUM SERUM 4.8 MEQ/L (3.5-5.1)
[2022-01-10 11:11] LABS: NEUTROPHILS # 0.7 10^3/uL (1.5-8.5)
[2022-01-13 16:09] LABS: CMV QUANT DNA PCR (PLASMA) Negative (Negative)
== END ==
LOC: M LAB 09:44
PROVIDERS: ATTEND Internal Medicine
DX: Z94.0 Kidney transplant status (principal); N18.5 Chronic kidney disease, stage 5; D84.9 Immunodeficiency, unspecified; Z79.899 Other long term (current) drug therapy

== ENCOUNTER → 2022-01-17 | Outpatient (CLI) | payer BC, OTHER, MEDICARE ==
[2022-01-17 15:26] LABS: APPEARANCE, URINE CLEAR (CLEAR); BACTERIA, URINE AUTO NEGATIVE (NEGATIVE); BILIRUBIN, URINE AUTO NEGATIVE (NEGATIVE); BLOOD, URINE BLOOD NEGATIVE (NEGATIVE); COLOR, URINE YELLOW (YELLOW); GLUCOSE, URINE (UA) AUTO 1+ mg/dL (NEGATIVE); KETONE, URINE AUTO NEGATIVE (NEGATIVE); LEUKOCYTE ESTERASE, URINE AUTO NEGATIVE (NEGATIVE); NITRITE, URINE AUTO NEGATIVE (NEGATIVE); PROTEIN, URINE AUTO 1+ mg/dL (NEGATIVE); RBC, URINE AUTO 1 /HPF (0-3); SPECIFIC GRAVITY URINE AUTO 1.019 (1.002-1.035); SQUAMOUS EPITHELIAL CELL UR AU 0 /HPF (0-6); UROBILINOGEN, URINE AUTO 0.2 mg/dL (0.0-2.0); WBC, URINE AUTO 1 /HPF (0-3)
[2022-01-17 15:28] LABS: BASO % 0.8 % (0.0-1.0); EOS % 2.5 % (0.0-3.0); HEMATOCRIT 41.9 % (42.0-52.0); HEMOGLOBIN 14.7 g/dl (13.5-17.5); LYMPH # 0.2 10^3/uL (1.5-5.0); LYMPH % 20.2 % (24.0-44.0); MEAN CORPUSCULAR HEMOGLOBIN 35.6 pg (27.0-33.0); MEAN CORPUSCULAR HGB CONC 35.1 g/dl (32.0-36.5); MEAN CORPUSCULAR VOLUME 101.5 fl (80.0-96.0); MONO # 0.2 10^3/uL (0.0-0.8); MONO % 13.4 % (2.0-8.0); NEUTROPHILS % 61.4 % (36.0-66.0); PLATELET COUNT, AUTOMATED 198 10^3/uL (150-450); RED BLOOD COUNT 4.13 10^6/uL (4.30-6.10); WHITE BLOOD COUNT 1.2 10^3/uL (4.0-10.0)
[2022-01-17 15:59] LABS: TOTAL PROTEIN,RANDOM URINE 25.3 MG/DL (0.0-12.0)
[2022-01-17 16:04] LABS: ALBUMIN 3.7 GM/DL (3.2-5.2); CREATININE FOR GFR 1.66 MG/DL (0.70-1.30); GLOMERULAR FILTRATION RATE 45.5 (>56); MAGNESIUM LEVEL 2.5 MG/DL (1.8-2.4); PHOSPHORUS LEVEL 2.2 MG/DL (2.5-4.9); POTASSIUM SERUM 4.4 MEQ/L (3.5-5.1)
[2022-01-17 16:22] LABS: NEUTROPHILS # 0.7 10^3/uL (1.5-8.5)
== END ==
LOC: M LAB 14:49
PROVIDERS: ATTEND Internal Medicine
DX: Z94.0 Kidney transplant status (principal); N18.5 Chronic kidney disease, stage 5; D84.9 Immunodeficiency, unspecified; Z79.899 Other long term (current) drug therapy

== ENCOUNTER 2022-01-31 07:31 | Outpatient (CLI) | payer BC, OTHER, MEDICARE ==
[~2022-01-31] VITALS: Ht 182.9 cm; Wt 113.6 kg
[2022-01-31] MEDS ORDERED: NS IV ONE (08:00)
[2022-01-31] MEDS ORDERED: BELATACEPT IV ONE (08:00)
[2022-01-31 09:01] VITALS: BP 164/78
== END 2022-01-31 09:00 | disposition home or self-care (01) ==
LOC: M INFU 07:31
PROVIDERS: ATTEND Internal Medicine Nephrology
DX: Z94.0 Kidney transplant status (principal)
CPT/HCPCS: 96365; J0485

== ENCOUNTER 2022-02-17 19:53 | Emergency (ER) | payer BC, OTHER, MEDICARE ==
[~2022-02-17] VITALS: Ht 182.9 cm; Wt 121.5 kg
[2022-02-18 05:42] VITALS: BP 141/80
== END 2022-02-18 06:06 | disposition home or self-care (01) ==
LOC: M ED 19:53
DX: U07.1 COVID-19 (principal); Z94.0 Kidney transplant status; E11.9 Type 2 diabetes mellitus without complications; I10 Essential (primary) hypertension; Z79.4 Long term (current) use of insulin; Z79.899 Other long term (current) drug therapy

== ENCOUNTER 2022-02-18 14:39 | Outpatient (CLI) | payer BC, OTHER, MEDICARE ==
[~2022-02-18] VITALS: Ht 182.9 cm; Wt 113.6 kg
[~2022-02-18 14:39] MED LIST changes: +ACETAMINOPHEN TAB 650MG DOSE (2X325MG) PO ONE; +ACETAMINOPHEN TAB 650MG DOSE (2X325MG) PO PRN; +ALBUTEROL 90 MCG/ACT 8GM HFA INHALER INH PRN; +ALBUTEROL SULFATE 2.5 MG/0.5 ML INH NEB SOLN INH PRN; +BEBTELOVIMAB 175MG 2ML VIAL (EUA) IV ONE; +EPINEPHrine INJ 1 MG/ML 1ML AMP IM PRN; +NS 1,000 ML IV SCH; +diphenhydrAMINE 25MG CAP PO ONE; +diphenhydrAMINE 50MG/ML VIAL (J1200) IV PRN; +methylPREDNISolone 125MG 2ML VIAL IV PRN
[2022-02-18 15:20] VITALS: BP 139/68
[2022-02-18 15:27] VITALS: BP 139/68
[2022-02-18 16:10] VITALS: BP 142/71
[2022-02-18 16:43] VITALS: BP 140/71
== END 2022-02-18 16:55 | disposition home or self-care (01) ==
LOC: M OPCLI4PR 14:39 → M 4MAIN 14:40 → M OPCLI4PR 16:55
PROVIDERS: ATTEND Family Medicine
DX: U07.1 COVID-19 (principal)

== ENCOUNTER 2022-02-28 07:23 | Outpatient (CLI) | payer BC, OTHER, MEDICARE ==
[~2022-02-28] VITALS: Ht 182.9 cm; Wt 113.6 kg
[~2022-02-28 07:23] MED LIST changes: -ACETAMINOPHEN TAB 650MG DOSE (2X325MG) PO ONE; -ACETAMINOPHEN TAB 650MG DOSE (2X325MG) PO PRN; -ALBUTEROL 90 MCG/ACT 8GM HFA INHALER INH PRN; -ALBUTEROL SULFATE 2.5 MG/0.5 ML INH NEB SOLN INH PRN; -BEBTELOVIMAB 175MG 2ML VIAL (EUA) IV ONE; -EPINEPHrine INJ 1 MG/ML 1ML AMP IM PRN; -NS 1,000 ML IV SCH; -diphenhydrAMINE 25MG CAP PO ONE; -diphenhydrAMINE 50MG/ML VIAL (J1200) IV PRN; -methylPREDNISolone 125MG 2ML VIAL IV PRN
[2022-02-28 08:00] VITALS: BP 186/77
[2022-02-28] MEDS ORDERED: BELATACEPT IV ONE (08:00)
[2022-02-28] MEDS ORDERED: NS IV ONE (08:00)
[2022-02-28 08:38] VITALS: BP 140/66
== END 2022-02-28 08:40 | disposition home or self-care (01) ==
LOC: M INFU 07:23
PROVIDERS: ATTEND Internal Medicine Nephrology
DX: Z94.0 Kidney transplant status (principal)
CPT/HCPCS: 96365; J0485

== ENCOUNTER 2022-03-27 07:57 | Outpatient (CLI) | payer BC, OTHER, MEDICARE ==
[2022-03-27 08:10] VITALS: BP 151/71
[2022-03-27] MEDS ORDERED: NS IV ONE (08:30)
[2022-03-27] MEDS ORDERED: BELATACEPT IV ONE (08:30)
[2022-03-27 10:05] VITALS: BP 164/77
== END 2022-03-27 10:05 | disposition home or self-care (01) ==
LOC: M INFU 07:57
PROVIDERS: ATTEND Internal Medicine Nephrology
DX: Z94.0 Kidney transplant status (principal)
CPT/HCPCS: 96365; J0485

== ENCOUNTER 2022-04-24 07:55 | Outpatient (CLI) | payer BC, OTHER, MEDICARE ==
[~2022-04-24] VITALS: Ht 185.4 cm; Wt 120.0 kg
[2022-04-24 08:00] VITALS: BP 110/59
[2022-04-24] MEDS ORDERED: NS IV ONE (08:30)
[2022-04-24] MEDS ORDERED: BELATACEPT IV ONE (08:30)
[2022-04-24 09:10] VITALS: BP 136/61
== END 2022-04-24 09:10 | disposition home or self-care (01) ==
LOC: M INFU 07:55
PROVIDERS: ATTEND Internal Medicine Nephrology
DX: Z94.0 Kidney transplant status (principal)
CPT/HCPCS: 96365; J0485

== ENCOUNTER 2022-05-22 07:50 | Outpatient (CLI) | payer BC, OTHER ==
[2022-05-22 08:03] VITALS: BP 120/60
[2022-05-22] MEDS ORDERED: NS IV ONE (08:30)
[2022-05-22] MEDS ORDERED: BELATACEPT IV ONE (08:30)
[2022-05-22 09:00] VITALS: BP 138/66
== END 2022-05-22 09:15 | disposition home or self-care (01) ==
LOC: M INFU 07:50
PROVIDERS: ATTEND Internal Medicine Nephrology
DX: Z94.0 Kidney transplant status (principal)
CPT/HCPCS: 96365; J0485

== ENCOUNTER 2022-06-20 07:37 | Outpatient (CLI) | payer BC, OTHER ==
[2022-06-20 07:45] VITALS: BP 142/65
[2022-06-20] MEDS ORDERED: BELATACEPT IV ONE (08:00)
[2022-06-20] MEDS ORDERED: NS IV ONE (08:00)
[2022-06-20 09:15] VITALS: BP 177/71
== END 2022-06-20 09:15 | disposition home or self-care (01) ==
LOC: M INFU 07:37
PROVIDERS: ATTEND Internal Medicine Nephrology
DX: Z94.0 Kidney transplant status (principal)
CPT/HCPCS: 96365; J0485

== ENCOUNTER → 2022-06-27 | Outpatient (REF) | payer BC, OTHER ==
[2022-06-27 18:34] LABS: CREATININE,RANDOM URINE 80.2 MG/DL
== END ==
LOC: M LAB REF 17:01
PROVIDERS: ATTEND Nurse Practitioner Family
DX: Z94.0 Kidney transplant status (principal); N18.5 Chronic kidney disease, stage 5; D84.9 Immunodeficiency, unspecified; Z79.899 Other long term (current) drug therapy

== ENCOUNTER → 2022-06-30 | Outpatient (REF) | payer MEDICARE, OTHER, BC ==
[2022-07-04 14:10] LABS: CMV QUANT DNA PCR (PLASMA) Positive < 200 IU/mL (Negative)
== END ==
LOC: M LAB REF 17:16
PROVIDERS: ATTEND Nurse Practitioner Family
DX: N18.5 Chronic kidney disease, stage 5 (principal); D84.9 Immunodeficiency, unspecified; Z94.0 Kidney transplant status; Z79.899 Other long term (current) drug therapy

== ENCOUNTER → 2022-07-13 | Outpatient (CLI) | payer MEDICARE, BC, OTHER | LOC: M RAD 18:09 | PROVIDERS: ATTEND Nurse Practitioner Family | DX: R06.00 Dyspnea, unspecified (principal) ==

== ENCOUNTER 2022-07-18 07:40 | Outpatient (CLI) | payer BC, OTHER ==
[~2022-07-18] VITALS: Ht 182.9 cm; Wt 118.1 kg
[2022-07-18 07:45] VITALS: BP 120/56
[2022-07-18] MEDS ORDERED: BELATACEPT IV ONE (08:30)
[2022-07-18] MEDS ORDERED: NS IV ONE (08:30)
[2022-07-18 09:15] VITALS: BP 142/68
== END 2022-07-18 09:15 | disposition home or self-care (01) ==
LOC: M INFU 07:40
PROVIDERS: ATTEND Internal Medicine Nephrology
DX: Z94.0 Kidney transplant status (principal)
CPT/HCPCS: 96365; J0485

== ENCOUNTER 2022-08-15 09:40 | Outpatient (CLI) | payer BC, OTHER ==
[~2022-08-15] VITALS: Ht 182.9 cm; Wt 118.0 kg
[2022-08-15 09:44] VITALS: BP 139/65
[2022-08-15] MEDS ORDERED: BELATACEPT IV ONE (10:00)
[2022-08-15] MEDS ORDERED: NS IV ONE (10:00)
[2022-08-15 10:43] VITALS: BP 117/58
== END 2022-08-15 10:40 | disposition home or self-care (01) ==
LOC: M INFU 09:40
PROVIDERS: ATTEND Internal Medicine Nephrology
DX: Z94.0 Kidney transplant status (principal)
CPT/HCPCS: 96365; J0485

== ENCOUNTER 2022-09-12 07:56 | Outpatient (CLI) | payer BC, OTHER ==
[~2022-09-12] VITALS: Ht 182.9 cm; Wt 118.2 kg
[2022-09-12 08:17] VITALS: BP 116/52
[2022-09-12] MEDS ORDERED: NS IV ONE (08:30)
[2022-09-12] MEDS ORDERED: BELATACEPT IV ONE (08:30)
[2022-09-12 09:20] VITALS: BP 130/61
== END 2022-09-12 09:20 | disposition home or self-care (01) ==
LOC: M INFU 07:56
PROVIDERS: ATTEND Internal Medicine Nephrology
DX: Z94.0 Kidney transplant status (principal)
CPT/HCPCS: 96365; J0485

== ENCOUNTER → 2022-09-26 | Outpatient (REF) | payer BC, OTHER ==
[2022-09-26 18:21] LABS: TOTAL PROTEIN,RANDOM URINE 25.8 MG/DL (0.0-14.0)
[2022-09-26 18:26] LABS: CREATININE,RANDOM URINE 148.6 MG/DL
[2022-09-28 19:07] LABS: log10 CMV QN DNA P1 2.979 (.)
== END ==
LOC: M LAB REF 17:16
PROVIDERS: ATTEND Nurse Practitioner Family
DX: Z94.0 Kidney transplant status (principal); N18.5 Chronic kidney disease, stage 5; D84.9 Immunodeficiency, unspecified; Z79.899 Other long term (current) drug therapy

== ENCOUNTER 2022-10-10 09:20 | Outpatient (CLI) | payer BC, OTHER ==
[~2022-10-10] VITALS: Ht 182.9 cm; Wt 118.2 kg
[2022-10-10] MEDS ORDERED: NS IV ONE (09:30)
[2022-10-10] MEDS ORDERED: BELATACEPT IV ONE (09:30)
[2022-10-10 09:35] VITALS: BP 144/70
[2022-10-10 10:50] VITALS: BP 151/76
== END 2022-10-10 10:50 ==
LOC: M INFU 09:20
PROVIDERS: ATTEND Internal Medicine Nephrology
DX: Z94.0 Kidney transplant status (principal)
CPT/HCPCS: 96365; J0485

== ENCOUNTER 2022-11-09 08:00 | Outpatient (CLI) | payer BC, OTHER ==
[~2022-11-09] VITALS: Ht 182.9 cm; Wt 118.1 kg
[2022-11-09 08:10] VITALS: BP 140/67
[2022-11-09] MEDS ORDERED: NS IV ONE (08:30)
[2022-11-09] MEDS ORDERED: BELATACEPT IV ONE (08:30)
[2022-11-09 09:14] VITALS: BP 131/67
== END 2022-11-09 09:20 | disposition home or self-care (01) ==
LOC: M INFU 08:00
PROVIDERS: ATTEND Internal Medicine Nephrology
DX: Z94.0 Kidney transplant status (principal)
CPT/HCPCS: 96365; J0485

== ENCOUNTER → 2022-12-05 | Outpatient (CLI) | payer BC, OTHER ==
[~2022-12-05] VITALS: Ht 182.9 cm; Wt 118.0 kg
[~2022-12-05] MED LIST changes: +BELATACEPT IV ONE; +NS IV ONE
[2022-12-05 09:05] VITALS: BP 131/60
[2022-12-05 10:15] VITALS: BP 127/60
== END ==
LOC: M INFU 08:43
PROVIDERS: ATTEND Internal Medicine Nephrology
DX: Z94.0 Kidney transplant status (principal)
CPT/HCPCS: 96365; J0485

== ENCOUNTER 2023-01-02 08:25 | Outpatient (CLI) | payer BC, OTHER ==
[~2023-01-02] VITALS: Ht 182.9 cm; Wt 118.0 kg
[2023-01-02 08:25] VITALS: BP 140/63
[~2023-01-02 08:25] MED LIST changes: -BELATACEPT IV ONE; -NS IV ONE
[2023-01-02] MEDS ORDERED: NS IV ONE (08:30)
[2023-01-02] MEDS ORDERED: BELATACEPT IV ONE (08:30)
[2023-01-02 10:05] VITALS: BP 134/71
== END 2023-01-02 10:05 | disposition home or self-care (01) ==
LOC: M INFU 08:25
PROVIDERS: ATTEND Internal Medicine Nephrology
DX: Z94.0 Kidney transplant status (principal)
CPT/HCPCS: 96365; J0485

== ENCOUNTER → 2023-01-08 | Outpatient (CLI) | payer BC, OTHER ==
[2023-01-08 11:39] LABS: BASO % 0.4 % (0.0-1.0); EOS # 0.3 10^3/uL (0.0-0.5); EOS % 5.7 % (0.0-3.0); HEMATOCRIT 47.6 % (42.0-52.0); HEMOGLOBIN 15.8 g/dl (13.5-17.5); LYMPH # 1.9 10^3/uL (1.5-5.0); LYMPH % 33.2 % (24.0-44.0); MEAN CORPUSCULAR HGB CONC 33.2 g/dl (32.0-36.5); MEAN CORPUSCULAR VOLUME 96.6 fl (80.0-96.0); MONO # 0.6 10^3/uL (0.0-0.8); MONO % 9.9 % (2.0-8.0); NEUTROPHILS # 2.9 10^3/uL (1.5-8.5); NEUTROPHILS % 50.6 % (36.0-66.0); PLATELET COUNT, AUTOMATED 158 10^3/uL (150-450); RED BLOOD COUNT 4.93 10^6/uL (4.30-6.10); WHITE BLOOD COUNT 5.7 10^3/uL (4.0-10.0)
[2023-01-08 11:48] LABS: APPEARANCE, URINE HAZY (CLEAR); BACTERIA, URINE AUTO NEGATIVE (NEGATIVE); BILIRUBIN, URINE AUTO NEGATIVE (NEGATIVE); BLOOD, URINE BLOOD 2+ (NEGATIVE); COLOR, URINE YELLOW (YELLOW); GLUCOSE, URINE (UA) AUTO 1+ mg/dL (NEGATIVE); KETONE, URINE AUTO NEGATIVE (NEGATIVE); LEUKOCYTE ESTERASE, URINE AUTO NEGATIVE (NEGATIVE); NITRITE, URINE AUTO NEGATIVE (NEGATIVE); PROTEIN, URINE AUTO 1+ mg/dL (NEGATIVE); RBC, URINE AUTO 9 /HPF (0-3); SQUAMOUS EPITHELIAL CELL UR AU 0 /HPF (0-6); UROBILINOGEN, URINE AUTO 0.2 mg/dL (0.0-2.0); WBC, URINE AUTO 3 /HPF (0-3)
[2023-01-10 20:10] LABS: CMV QUANT DNA PCR (PLASMA) Positive < 200 IU/mL (Negative); EBV AB TO NUCLEAR ANTIGEN >600.0 U/mL (0.0-17.9); EBV VIRAL CAPSID AG IgM <36.0 U/mL (0.0-35.9)
== END ==
LOC: M LAB 09:54
PROVIDERS: ATTEND Nurse Practitioner Family
DX: R50.9 Fever, unspecified (principal); R61 Generalized hyperhidrosis; D72.10 Eosinophilia, unspecified; R31.9 Hematuria, unspecified; Z94.0 Kidney transplant status

== ENCOUNTER → 2023-01-08 | Outpatient (REF) | payer OTHER, BC | LOC: M LAB REF 10:14 | PROVIDERS: ATTEND Nurse Practitioner Family | DX: Z94.0 Kidney transplant status (principal); N18.5 Chronic kidney disease, stage 5; D84.9 Immunodeficiency, unspecified; Z79.899 Other long term (current) drug therapy ==

== ENCOUNTER 2023-01-30 08:20 | Outpatient (CLI) | payer BC, OTHER ==
[~2023-01-30] VITALS: Ht 182.9 cm; Wt 118.0 kg
[2023-01-30 08:20] VITALS: BP 139/63
[2023-01-30] MEDS ORDERED: BELATACEPT IV ONE (08:30)
[2023-01-30] MEDS ORDERED: NS IV ONE (08:30)
[2023-01-30 09:30] VITALS: BP 152/76
== END 2023-01-30 09:30 | disposition home or self-care (01) ==
LOC: M INFU 08:20
PROVIDERS: ATTEND Internal Medicine Nephrology
DX: Z94.0 Kidney transplant status (principal)
CPT/HCPCS: 96365; J0485

== ENCOUNTER 2023-02-27 08:40 | Outpatient (CLI) | payer MEDICARE, BC, OTHER ==
[~2023-02-27] VITALS: Ht 182.9 cm; Wt 118.0 kg
[2023-02-27 08:43] VITALS: BP 141/69
[2023-02-27] MEDS ORDERED: BELATACEPT IV ONE (09:00)
[2023-02-27] MEDS ORDERED: NS IV ONE (09:00)
[2023-02-27 09:56] VITALS: BP 141/67
== END 2023-02-27 09:50 | disposition home or self-care (01) ==
LOC: M INFU 08:40
PROVIDERS: ATTEND Internal Medicine Nephrology
DX: Z94.0 Kidney transplant status (principal)
CPT/HCPCS: 96365; J0485

== ENCOUNTER → 2023-02-27 | Outpatient (REF) | payer MEDICARE, OTHER ==
[2023-03-01 15:13] LABS: IgG P18 AB Absent (.); IgG P23 AB Absent (.); IgG P28 AB Absent (.); IgG P30 AB Absent (.); IgG P39 AB Absent (.); IgG P41 AB Present (.); IgG P45 AB Absent (.); IgG P66 AB Absent (.); IgG P93 AB Absent (.); IgM P23 AB Absent (.); IgM P39 AB Absent (.); IgM P41 AB Absent (.); LYME IgG WB INTERPRETATION Negative (.); LYME IgM WB INTERPRETATION Negative (.)
== END ==
LOC: M LAB REF 16:58
PROVIDERS: ATTEND Nurse Practitioner Family
DX: S70.362A Insect bite (nonvenomous), left thigh, initial encounter (principal)

== ENCOUNTER → 2023-03-26 | Outpatient (CLI) | payer MEDICARE, BC, OTHER ==
[2023-03-26 14:51] LABS: HEMATOCRIT 44.2 % (42.0-52.0); HEMOGLOBIN 14.7 g/dl (13.5-17.5); MEAN CORPUSCULAR HEMOGLOBIN 31.7 pg (27.0-33.0); MEAN CORPUSCULAR HGB CONC 33.3 g/dl (32.0-36.5); MEAN CORPUSCULAR VOLUME 95.3 fl (80.0-96.0); PLATELET COUNT, AUTOMATED 120 10^3/uL (150-450); RED BLOOD COUNT 4.64 10^6/uL (4.30-6.10); WHITE BLOOD COUNT 5.8 10^3/uL (4.0-10.0)
[2023-03-26 15:25] LABS: ALBUMIN 3.6 G/DL (3.2-5.2); BILIRUBIN,TOTAL 0.6 MG/DL (0.3-1.2); CALCIUM LEVEL 8.1 MG/DL (8.5-10.1); CHOLESTEROL RISK RATIO 4.57 (<5); CREATININE FOR GFR 1.36 MG/DL (0.70-1.30); GLOMERULAR FILTRATION RATE 57.1 (>56); HDL CHOLESTEROL 25.6 MG/DL (>40); LDL CHOLESTEROL 48.4 MG/DL (<100); NON-HDL-C 91.4 MG/DL; PERCENT SATURATION 37.3 % (19.7-50.0); POTASSIUM SERUM 4.3 MMOL/L (3.5-5.1); THYROXINE (T4) 7.5 UG/DL (4.5-10.9)
[2023-03-26 15:26] LABS: FERRITIN 161.1 NG/ML (10.5-307.3); FREE THYROXINE INDEX 2.7 % (1.4-3.8); T UPTAKE 35.7 % (22.5-37.0); THYROID STIMULATING HORMONE 0.879 uIU/ML (0.55-4.78)
[2023-03-26 16:10] LABS: HEMOGLOBIN A1c 8.9 % (4.0-6.0)
== END ==
LOC: M LAB 14:00 → M INFU 14:00
PROVIDERS: ATTEND Nurse Practitioner Adult Health
DX: D64.9 Anemia, unspecified (principal)

== ENCOUNTER → 2023-03-26 | Outpatient (CLI) | payer MEDICARE, BC, OTHER ==
[~2023-03-26] VITALS: Ht 185.4 cm; Wt 112.7 kg
[~2023-03-26] MED LIST changes: +BELATACEPT IV ONE; +NS IV ONE
[2023-03-26 14:05] VITALS: BP 137/72; O2SAT 99
[2023-03-26 15:14] VITALS: BP 140/68; O2SAT 97
== END ==
LOC: M INFU 13:54
PROVIDERS: ATTEND Internal Medicine Nephrology
DX: Z94.0 Kidney transplant status (principal); D64.9 Anemia, unspecified; E11.9 Type 2 diabetes mellitus without complications; Z79.899 Other long term (current) drug therapy; E78.5 Hyperlipidemia, unspecified
CPT/HCPCS: 36592; 80053; 80061; 82607; 82728; 83036; 83550; 84436; 84443; 84479; 85027; 96365; J0485

== ENCOUNTER 2023-04-23 11:00 | Outpatient (CLI) | payer MEDICARE, BC, OTHER ==
[~2023-04-23] VITALS: Ht 185.4 cm; Wt 112.7 kg
[2023-04-23 10:50] VITALS: BP 122/66; O2SAT 97
[2023-04-23 12:11] VITALS: BP 111/66; O2SAT 99
== END 2023-04-23 12:15 ==
LOC: M INFU 11:00
PROVIDERS: ATTEND Internal Medicine Nephrology
DX: Z94.0 Kidney transplant status (principal)
CPT/HCPCS: 96365; J0485

== ENCOUNTER → 2023-05-17 | Outpatient (CLI) | payer MEDICARE, BC, OTHER ==
[~2023-05-17] MED LIST changes: -BELATACEPT IV ONE; -NS IV ONE
[2023-05-17 18:58] LABS: BASO % 0.3 % (0.0-1.0); EOS # 0.3 10^3/uL (0.0-0.5); EOS % 4.7 % (0.0-3.0); HEMATOCRIT 44.9 % (42.0-52.0); LYMPH # 2.5 10^3/uL (1.5-5.0); LYMPH % 41.5 % (24.0-44.0); MEAN CORPUSCULAR HGB CONC 33.4 g/dl (32.0-36.5); MEAN CORPUSCULAR VOLUME 95.7 fl (80.0-96.0); MONO # 0.7 10^3/uL (0.0-0.8); MONO % 11.6 % (2.0-8.0); NEUTROPHILS # 2.5 10^3/uL (1.5-8.5); NEUTROPHILS % 41.6 % (36.0-66.0); RED BLOOD COUNT 4.69 10^6/uL (4.30-6.10); WHITE BLOOD COUNT 6.1 10^3/uL (4.0-10.0)
[2023-05-17 19:25] LABS: PLATELET COUNT, AUTOMATED 94 10^3/uL (150-450)
== END ==
LOC: M LAB 18:08
PROVIDERS: ATTEND Internal Medicine Hematology & Oncology
DX: C91.Z0 Other lymphoid leukemia not having achieved remission (principal)

== ENCOUNTER 2023-05-21 14:15 | Outpatient (CLI) | payer MEDICARE, BC, OTHER ==
[~2023-05-21] VITALS: Ht 185.4 cm; Wt 116.0 kg
[2023-05-21 14:10] VITALS: BP 141/65; O2SAT 96
[2023-05-21] MEDS ORDERED: BELATACEPT IV ONE (14:30)
[2023-05-21] MEDS ORDERED: NS IV ONE (14:30)
[2023-05-21 15:30] VITALS: BP 108/62; O2SAT 95
== END 2023-05-21 15:40 ==
LOC: M INFU 14:15
PROVIDERS: ATTEND Internal Medicine Nephrology
DX: Z94.0 Kidney transplant status (principal)
CPT/HCPCS: 96365; J0485

== ENCOUNTER → 2023-06-08 | Outpatient (CLI) | payer MEDICARE, BC, OTHER | LOC: M RAD 08:30 | PROVIDERS: ATTEND Internal Medicine Hematology & Oncology | DX: D69.6 Thrombocytopenia, unspecified (principal); Z53.9 Procedure and treatment not carried out, unspecified reason ==

== ENCOUNTER → 2023-06-13 | Outpatient (CLI) | payer MEDICARE, BC, OTHER | LOC: M RAD 06:43 | PROVIDERS: ATTEND Internal Medicine Hematology & Oncology | DX: D69.6 Thrombocytopenia, unspecified (principal); Z53.9 Procedure and treatment not carried out, unspecified reason ==

== ENCOUNTER 2023-06-19 08:00 | Outpatient (CLI) | payer MEDICARE, BC, OTHER ==
[~2023-06-19] VITALS: Ht 182.9 cm; Wt 117.9 kg
[2023-06-19 08:00] VITALS: BP 143/67; O2SAT 98
[2023-06-19] MEDS ORDERED: NS IV ONE (08:30)
[2023-06-19] MEDS ORDERED: BELATACEPT IV ONE (08:30)
[2023-06-19 09:17] VITALS: BP 137/66; O2SAT 97
== END 2023-06-19 09:20 | disposition home or self-care (01) ==
LOC: M INFU 08:00
PROVIDERS: ATTEND Internal Medicine Nephrology
DX: Z94.0 Kidney transplant status (principal)
CPT/HCPCS: 96365; J0485

== ENCOUNTER → 2023-06-22 | Outpatient (CLI) | payer MEDICARE, BC, OTHER ==
[2023-06-22 14:01] LABS: BASO % 0.3 % (0.0-1.0); EOS # 0.3 10^3/uL (0.0-0.5); EOS % 4.9 % (0.0-3.0); HEMATOCRIT 43.3 % (42.0-52.0); HEMOGLOBIN 14.3 g/dl (13.5-17.5); LYMPH # 2.3 10^3/uL (1.5-5.0); LYMPH % 39.4 % (24.0-44.0); MEAN CORPUSCULAR HEMOGLOBIN 31.9 pg (27.0-33.0); MEAN CORPUSCULAR VOLUME 96.7 fl (80.0-96.0); MONO # 0.4 10^3/uL (0.0-0.8); MONO % 6.9 % (2.0-8.0); NEUTROPHILS # 2.9 10^3/uL (1.5-8.5); NEUTROPHILS % 48.3 % (36.0-66.0); PLATELET COUNT, AUTOMATED 106 10^3/uL (150-450); RED BLOOD COUNT 4.48 10^6/uL (4.30-6.10); WHITE BLOOD COUNT 5.9 10^3/uL (4.0-10.0)
[2023-06-22 14:56] LABS: HIV 1&2 SCREEN NEGATIVE (NEGATIVE)
[2023-06-22 15:04] LABS: HEPATITIS C VIRUS ABY INDEX 0.15 INDEX (<0.8)
[2023-06-25 18:07] LABS: HEPATITIS B CORE ANTIBODY IGG Negative (Negative)
== END ==
LOC: M LAB 13:06
PROVIDERS: ATTEND Internal Medicine Hematology & Oncology
DX: D69.6 Thrombocytopenia, unspecified (principal)

== ENCOUNTER 2023-07-17 08:45 | Outpatient (CLI) | payer BC, OTHER, MEDICARE ==
[~2023-07-17] VITALS: Ht 182.9 cm; Wt 113.6 kg
[2023-07-17 09:03] VITALS: BP 126/64; O2SAT 98
[2023-07-17] MEDS ORDERED: BELATACEPT IV ONE (09:30)
[2023-07-17] MEDS ORDERED: NS IV ONE (09:30)
[2023-07-17 10:33] VITALS: BP 150/68; O2SAT 95
== END 2023-07-17 10:34 | disposition home or self-care (01) ==
LOC: M INFU 08:45
PROVIDERS: ATTEND Nurse Practitioner Family
DX: Z94.0 Kidney transplant status (principal)
CPT/HCPCS: 96365; J0485

== ENCOUNTER 2023-08-14 08:20 | Outpatient (CLI) | payer MEDICARE, BC, OTHER ==
[~2023-08-14] VITALS: Ht 182.9 cm; Wt 115.7 kg
[2023-08-14 08:20] VITALS: BP 139/66; O2SAT 96
[2023-08-14] MEDS ORDERED: BELATACEPT IV ONE (08:30)
[2023-08-14] MEDS ORDERED: NS IV ONE (08:30)
[2023-08-14 09:58] VITALS: BP 145/70; O2SAT 95
== END 2023-08-14 10:05 ==
LOC: M INFU 08:20
PROVIDERS: ATTEND Nurse Practitioner Family
DX: Z94.0 Kidney transplant status (principal)
CPT/HCPCS: 96365; J0485

== ENCOUNTER → 2023-08-14 | Outpatient (CLI) | payer BC, OTHER ==
[2023-08-14 09:12] LABS: BASO % 0.5 % (0.0-1.0); EOS # 0.2 10^3/uL (0.0-0.5); HEMATOCRIT 46.4 % (42.0-52.0); HEMOGLOBIN 15.5 g/dl (13.5-17.5); LYMPH # 2.1 10^3/uL (1.5-5.0); LYMPH % 37.5 % (24.0-44.0); MEAN CORPUSCULAR HGB CONC 33.4 g/dl (32.0-36.5); MEAN CORPUSCULAR VOLUME 95.9 fl (80.0-96.0); MONO # 0.6 10^3/uL (0.0-0.8); NEUTROPHILS # 2.6 10^3/uL (1.5-8.5); NEUTROPHILS % 46.6 % (36.0-66.0); PLATELET COUNT, AUTOMATED 128 10^3/uL (150-450); RED BLOOD COUNT 4.84 10^6/uL (4.30-6.10); WHITE BLOOD COUNT 5.5 10^3/uL (4.0-10.0)
[2023-08-17 16:08] LABS: CMV QUANT DNA PCR (PLASMA) Negative (Negative); IMMUNOTYPING SERUM IGA SO 98 mg/dL (90-386); IMMUNOTYPING SERUM IGM SO 81 mg/dL (20-172); KAPPA/LAMBDA RATIO SERUM 1.81 (0.26-1.65); PARVOVIRUS B19 QUANT PCR Negative copies/mL (Negative)
== END ==
LOC: M LAB 08:13
PROVIDERS: ATTEND Internal Medicine Hematology & Oncology
DX: D47.2 Monoclonal gammopathy (principal); D69.6 Thrombocytopenia, unspecified

== ENCOUNTER → 2023-08-21 | Outpatient (CLI) | payer BC, OTHER ==
[2023-08-21 10:52] LABS: PROSTATIC SPECIFIC AG MONITOR 1.94 NG/ML (< 4.00)
[2023-08-21 10:56] LABS: PROLACTIN 12.71 NG/ML (2.1-17.7)
== END ==
LOC: M LAB 09:20
PROVIDERS: ATTEND Internal Medicine Endocrinology, Diabetes & Metabolism
DX: F52.21 Male erectile disorder (principal)

== ENCOUNTER 2023-09-11 07:50 | Outpatient (CLI) | payer BC, OTHER ==
[~2023-09-11] VITALS: Ht 188 cm; Wt 111.8 kg
[2023-09-11 07:52] VITALS: BP 144/64; O2SAT 96
[2023-09-11] MEDS ORDERED: NS IV ONE (08:00)
[2023-09-11] MEDS ORDERED: BELATACEPT IV ONE (08:00)
[2023-09-11 09:15] VITALS: BP 117/62; O2SAT 96
== END 2023-09-11 09:15 ==
LOC: M INFU 07:50
PROVIDERS: ATTEND Nurse Practitioner Family
DX: Z94.0 Kidney transplant status (principal)
CPT/HCPCS: 96365; J0485

== ENCOUNTER → 2023-09-11 | Outpatient (CLI) | payer MEDICARE, BC, OTHER | LOC: M RAD 09:56 | PROVIDERS: ATTEND Internal Medicine Hematology & Oncology | DX: D89.2 Hypergammaglobulinemia, unspecified (principal) ==

== ENCOUNTER → 2023-09-24 | Outpatient (CLI) | payer MEDICARE, BC, OTHER | LOC: M PLARAD 07:28 | PROVIDERS: ATTEND Internal Medicine Hematology & Oncology | DX: D89.2 Hypergammaglobulinemia, unspecified (principal); C90.00 Multiple myeloma not having achieved remission | CPT/HCPCS: 78815; A9552 ==

== ENCOUNTER 2023-11-06 08:07 | Outpatient (CLI) | payer MEDICARE, BC, OTHER ==
[~2023-11-06] VITALS: Ht 182.9 cm; Wt 116.3 kg
[2023-11-06 08:15] VITALS: BP 128/58; O2SAT 100
[2023-11-06] MEDS ORDERED: BELATACEPT IV ONE (08:45)
[2023-11-06] MEDS ORDERED: NS IV ONE (08:45)
[2023-11-06 09:49] VITALS: BP 132/67; O2SAT 96
== END 2023-11-06 09:50 | disposition home or self-care (01) ==
LOC: M INFU 08:07
PROVIDERS: ATTEND Nurse Practitioner Family
DX: Z94.0 Kidney transplant status (principal)
CPT/HCPCS: 96365; J0485

== ENCOUNTER 2023-12-04 08:20 | Outpatient (CLI) | payer MEDICARE, BC, OTHER ==
[~2023-12-04 08:20] MED LIST changes: -HYDR-3910 PO; +HYDR25TA87 PO
[2023-12-04 08:25] VITALS: BP 134/61; O2SAT 96
[2023-12-04] MEDS: NS IV ONE (08:48)
[2023-12-04] MEDS: BELATACEPT IV ONE (08:48)
[2023-12-04 09:24] VITALS: BP 154/73; O2SAT 96
== END 2023-12-04 09:25 ==
LOC: M INFU 08:20
PROVIDERS: ATTEND Nurse Practitioner Family
DX: Z94.0 Kidney transplant status (principal)
CPT/HCPCS: 96365; J0485

== ENCOUNTER → 2023-12-07 | Outpatient (CLI) | payer MEDICARE, BC, OTHER | LOC: M LAB 10:01 | PROVIDERS: ATTEND Physician Assistant | DX: Z12.5 Encounter for screening for malignant neoplasm of prostate (principal) ==

== ENCOUNTER 2024-01-01 08:25 | Outpatient (CLI) | payer BC, MEDICARE ==
[~2024-01-01] VITALS: Ht 182.9 cm; Wt 113.0 kg
[2024-01-01 08:34] VITALS: BP 133/62; O2SAT 96
[2024-01-01] MEDS: BELATACEPT IV ONE (08:57)
[2024-01-01] MEDS: NS IV ONE (08:57)
[2024-01-01 09:35] VITALS: BP 130/65; O2SAT 98
== END 2024-01-01 09:45 | disposition home or self-care (01) ==
LOC: M INFU 08:25
PROVIDERS: ATTEND Nurse Practitioner Family
DX: Z94.0 Kidney transplant status (principal)
CPT/HCPCS: 96365; J0485

== ENCOUNTER 2024-01-29 07:20 | Outpatient (CLI) | payer BC, MEDICARE ==
[~2024-01-29] VITALS: Ht 182.9 cm; Wt 114.6 kg
[2024-01-29 07:20] VITALS: BP 122/58; O2SAT 97
[2024-01-29] MEDS: BELATACEPT IV ONE (08:21)
[2024-01-29] MEDS: NS IV ONE (08:21)
[2024-01-29 08:53] VITALS: BP 134/62; O2SAT 96
== END 2024-01-29 09:00 | disposition home or self-care (01) ==
LOC: M INFU 07:20
PROVIDERS: ATTEND Nurse Practitioner Family
DX: Z94.0 Kidney transplant status (principal)
CPT/HCPCS: 96365; J0485

== ENCOUNTER 2024-02-29 08:45 | Outpatient (CLI) | payer MEDICARE, BC ==
[~2024-02-29] VITALS: Ht 185.4 cm; Wt 114.0 kg
[2024-02-29 09:05] VITALS: BP 145/70; O2SAT 97
[2024-02-29] MEDS: BELATACEPT IV ONE (10:12)
[2024-02-29] MEDS: NS IV ONE (10:12)
[2024-02-29 10:50] VITALS: BP 126/61; O2SAT 97
== END 2024-02-29 10:50 | disposition home or self-care (01) ==
LOC: M INFU 08:45
PROVIDERS: ATTEND Nurse Practitioner Family
DX: Z94.0 Kidney transplant status (principal)
CPT/HCPCS: 96365; J0485

== ENCOUNTER 2024-03-28 13:25 | Outpatient (CLI) | payer BC, MEDICARE ==
[~2024-03-28] VITALS: Ht 182.9 cm; Wt 113.6 kg
[~2024-03-28 13:25] MED LIST changes: +BELATACEPT IV ONE; +NS IV ONE
[2024-03-28 13:44] VITALS: BP 141/68; O2SAT 96
[2024-03-28] MEDS: NS IV ONE (13:59)
[2024-03-28] MEDS: BELATACEPT IV ONE (13:59)
[2024-03-28 14:40] VITALS: BP 151/71; O2SAT 97
== END 2024-03-28 14:40 ==
LOC: M INFU 13:25
PROVIDERS: ATTEND Nurse Practitioner Family
DX: Z94.0 Kidney transplant status (principal)
CPT/HCPCS: 96365; J0485

== ENCOUNTER → 2024-03-28 | Outpatient (CLI) | payer BC, MEDICARE ==
[2024-03-28 14:20] LABS: BASO % 0.3 % (0.0-1.0); EOS # 0.3 10^3/uL (0.0-0.5); EOS % 4.8 % (0.0-3.0); HEMATOCRIT 47.2 % (42.0-52.0); HEMOGLOBIN 15.7 g/dl (13.5-17.5); LYMPH # 2.3 10^3/uL (1.5-5.0); MEAN CORPUSCULAR HEMOGLOBIN 32.2 pg (27.0-33.0); MEAN CORPUSCULAR HGB CONC 33.3 g/dl (32.0-36.5); MEAN CORPUSCULAR VOLUME 96.7 fl (80.0-96.0); MONO # 0.5 10^3/uL (0.0-0.8); MONO % 8.1 % (2.0-8.0); NEUTROPHILS # 3.1 10^3/uL (1.5-8.5); NEUTROPHILS % 49.6 % (36.0-66.0); PLATELET COUNT, AUTOMATED 176 10^3/uL (150-450); RED BLOOD COUNT 4.88 10^6/uL (4.30-6.10); WHITE BLOOD COUNT 6.2 10^3/uL (4.0-10.0)
[2024-03-28 14:21] LABS: APPEARANCE, URINE CLEAR (CLEAR); BACTERIA, URINE AUTO NEGATIVE (NEGATIVE); BILIRUBIN, URINE AUTO NEGATIVE (NEGATIVE); BLOOD, URINE BLOOD NEGATIVE (NEGATIVE); COLOR, URINE YELLOW (YELLOW); GLUCOSE, URINE (UA) AUTO 3+ mg/dL (NEGATIVE); KETONE, URINE AUTO NEGATIVE (NEGATIVE); LEUKOCYTE ESTERASE, URINE AUTO NEGATIVE (NEGATIVE); NITRITE, URINE AUTO NEGATIVE (NEGATIVE); PROTEIN, URINE AUTO NEGATIVE (NEGATIVE); RBC, URINE AUTO 0 /HPF (0-3); SPECIFIC GRAVITY URINE AUTO 1.014 (1.002-1.035); SQUAMOUS EPITHELIAL CELL UR AU 0 /HPF (0-6); UROBILINOGEN, URINE AUTO 0.2 mg/dL (0.0-2.0); WBC, URINE AUTO 1 /HPF (0-3)
[2024-03-28 14:38] LABS: TOTAL PROTEIN,RANDOM URINE 8.1 MG/DL (0.0-14.0)
[2024-03-28 14:43] LABS: CREATININE,RANDOM URINE 73.8 MG/DL
[2024-03-28 14:44] LABS: ALBUMIN 4.1 G/DL (3.2-5.2); BILIRUBIN,DIRECT 0.2 MG/DL (<0.4); BILIRUBIN,TOTAL 0.7 MG/DL (0.3-1.2); CALCIUM LEVEL 8.3 MG/DL (8.3-10.6); CREATININE FOR GFR 1.32 MG/DL (0.70-1.30); GLOMERULAR FILTRATION RATE 58.9 (>49); MAGNESIUM LEVEL 1.9 MG/DL (1.8-2.4); PHOSPHORUS LEVEL 2.6 MG/DL (2.4-5.1); POTASSIUM SERUM 3.9 MMOL/L (3.5-5.1); TOTAL PROTEIN 6.2 G/DL (5.7-8.2)
== END ==
LOC: M LAB 12:41
PROVIDERS: ATTEND Nurse Practitioner Family
DX: D84.9 Immunodeficiency, unspecified (principal); Z94.0 Kidney transplant status; Z79.899 Other long term (current) drug therapy

== ENCOUNTER → 2024-04-14 | Outpatient (CLI) | payer BC, MEDICARE ==
[~2024-04-14] MED LIST changes: -BELATACEPT IV ONE; -NS IV ONE
[2024-04-14 11:36] LABS: APPEARANCE, URINE CLEAR (CLEAR); BACTERIA, URINE AUTO NEGATIVE (NEGATIVE); BILIRUBIN, URINE AUTO NEGATIVE (NEGATIVE); BLOOD, URINE BLOOD NEGATIVE (NEGATIVE); COLOR, URINE YELLOW (YELLOW); GLUCOSE, URINE (UA) AUTO 2+ mg/dL (NEGATIVE); KETONE, URINE AUTO NEGATIVE (NEGATIVE); LEUKOCYTE ESTERASE, URINE AUTO NEGATIVE (NEGATIVE); NITRITE, URINE AUTO NEGATIVE (NEGATIVE); PROTEIN, URINE AUTO NEGATIVE (NEGATIVE); RBC, URINE AUTO 1 /HPF (0-3); SPECIFIC GRAVITY URINE AUTO 1.018 (1.002-1.035); SQUAMOUS EPITHELIAL CELL UR AU 0 /HPF (0-6); WBC, URINE AUTO 1 /HPF (0-3)
[2024-04-14 11:38] LABS: BASO % 0.7 % (0.0-1.0); EOS # 0.2 10^3/uL (0.0-0.5); EOS % 3.2 % (0.0-3.0); HEMATOCRIT 46.2 % (42.0-52.0); HEMOGLOBIN 15.5 g/dl (13.5-17.5); LYMPH % 33.8 % (24.0-44.0); MEAN CORPUSCULAR HEMOGLOBIN 31.9 pg (27.0-33.0); MEAN CORPUSCULAR HGB CONC 33.5 g/dl (32.0-36.5); MEAN CORPUSCULAR VOLUME 95.1 fl (80.0-96.0); MONO # 0.6 10^3/uL (0.0-0.8); MONO % 9.7 % (2.0-8.0); NEUTROPHILS # 3.1 10^3/uL (1.5-8.5); NEUTROPHILS % 52.4 % (36.0-66.0); PLATELET COUNT, AUTOMATED 174 10^3/uL (150-450); RED BLOOD COUNT 4.86 10^6/uL (4.30-6.10)
[2024-04-14 12:03] LABS: TOTAL PROTEIN,RANDOM URINE 22.6 MG/DL (0.0-14.0)
[2024-04-14 12:06] LABS: CREATININE,RANDOM URINE 140.5 MG/DL
[2024-04-14 12:07] LABS: ALBUMIN 3.7 G/DL (3.2-5.2); ALKALINE PHOSPHATASE 41 U/L (46-116); ALT/SGPT 22 U/L (7.0-40); AST/SGOT 10 U/L (<34); BILIRUBIN,DIRECT 0.2 MG/DL (<0.4); BILIRUBIN,TOTAL 0.6 MG/DL (0.3-1.2); BLOOD UREA NITROGEN 20 MG/DL (9-23); CALCIUM LEVEL 9.1 MG/DL (8.3-10.6); CARBON DIOXIDE LEVEL 26 MMOL/L (20-31); CHLORIDE LEVEL 109 MMOL/L (98-107); CREATININE FOR GFR 1.25 MG/DL (0.70-1.30); GLOMERULAR FILTRATION RATE > 60.0 (>49); GLUCOSE, FASTING 180 MG/DL (74-106); MAGNESIUM LEVEL 2.1 MG/DL (1.8-2.4); PHOSPHORUS LEVEL 3.1 MG/DL (2.4-5.1); POTASSIUM SERUM 4.1 MMOL/L (3.5-5.1); SODIUM LEVEL 141 MMOL/L (136-145); TOTAL PROTEIN 6.1 G/DL (5.7-8.2)
== END ==
LOC: M LAB 10:12
PROVIDERS: ATTEND Nurse Practitioner Family
DX: Z94.0 Kidney transplant status (principal); N18.5 Chronic kidney disease, stage 5; D84.9 Immunodeficiency, unspecified; Z79.899 Other long term (current) drug therapy

== ENCOUNTER 2024-04-25 09:00 | Outpatient (CLI) | payer MEDICARE, BC ==
[~2024-04-25] VITALS: Ht 182.9 cm; Wt 111.3 kg
[2024-04-25 08:50] VITALS: BP 139/65; O2SAT 98
[2024-04-25] MEDS: NS IV ONE (09:35)
[2024-04-25] MEDS: BELATACEPT IV ONE (09:35)
[2024-04-25 10:15] VITALS: BP 148/69; O2SAT 96
== END 2024-04-25 10:15 ==
LOC: M INFU 09:00
PROVIDERS: ATTEND Nurse Practitioner Family
DX: Z94.0 Kidney transplant status (principal)
CPT/HCPCS: 96365; J0485

== ENCOUNTER → 2024-04-28 | Outpatient (CLI) | payer BC, MEDICARE ==
[2024-04-28 14:40] LABS: APPEARANCE, URINE CLEAR (CLEAR); BACTERIA, URINE AUTO NEGATIVE (NEGATIVE); BILIRUBIN, URINE AUTO NEGATIVE (NEGATIVE); BLOOD, URINE BLOOD NEGATIVE (NEGATIVE); COLOR, URINE YELLOW (YELLOW); GLUCOSE, URINE (UA) AUTO NEGATIVE (NEGATIVE); KETONE, URINE AUTO NEGATIVE (NEGATIVE); LEUKOCYTE ESTERASE, URINE AUTO NEGATIVE (NEGATIVE); NITRITE, URINE AUTO NEGATIVE (NEGATIVE); PROTEIN, URINE AUTO NEGATIVE (NEGATIVE); RBC, URINE AUTO 0 /HPF (0-3); SPECIFIC GRAVITY URINE AUTO 1.011 (1.002-1.035); SQUAMOUS EPITHELIAL CELL UR AU 0 /HPF (0-6); UROBILINOGEN, URINE AUTO 0.2 mg/dL (0.0-2.0); WBC, URINE AUTO 0 /HPF (0-3)
[2024-04-28 14:42] LABS: BASO % 0.4 % (0.0-1.0); EOS # 0.3 10^3/uL (0.0-0.5); EOS % 4.8 % (0.0-3.0); HEMATOCRIT 46.6 % (42.0-52.0); HEMOGLOBIN 15.7 g/dl (13.5-17.5); LYMPH # 2.2 10^3/uL (1.5-5.0); LYMPH % 31.6 % (24.0-44.0); MEAN CORPUSCULAR HEMOGLOBIN 31.9 pg (27.0-33.0); MEAN CORPUSCULAR HGB CONC 33.7 g/dl (32.0-36.5); MEAN CORPUSCULAR VOLUME 94.7 fl (80.0-96.0); MONO # 0.7 10^3/uL (0.0-0.8); MONO % 9.4 % (2.0-8.0); NEUTROPHILS # 3.7 10^3/uL (1.5-8.5); NEUTROPHILS % 53.5 % (36.0-66.0); PLATELET COUNT, AUTOMATED 182 10^3/uL (150-450); RED BLOOD COUNT 4.92 10^6/uL (4.30-6.10); WHITE BLOOD COUNT 6.9 10^3/uL (4.0-10.0)
[2024-04-28 15:08] LABS: TOTAL PROTEIN,RANDOM URINE 11.4 MG/DL (0.0-14.0)
[2024-04-28 15:13] LABS: ALBUMIN 3.8 G/DL (3.2-5.2); BILIRUBIN,DIRECT 0.2 MG/DL (<0.4); BILIRUBIN,TOTAL 0.8 MG/DL (0.3-1.2); CALCIUM LEVEL 9.3 MG/DL (8.3-10.6); CREATININE FOR GFR 1.44 MG/DL (0.70-1.30); GLOMERULAR FILTRATION RATE 53.3 (>49); MAGNESIUM LEVEL 1.9 MG/DL (1.8-2.4); PHOSPHORUS LEVEL 2.8 MG/DL (2.4-5.1); TOTAL PROTEIN 6.2 G/DL (5.7-8.2)
[2024-04-28 15:13] LABS: CREATININE,RANDOM URINE 86.4 MG/DL
[2024-05-02 16:07] LABS: CMV QUANT DNA PCR (PLASMA) Not Detected; CMV SOURCE Whole Blood; log10 CMV QN DNA P1 Not Detected log IU/mL
== END ==
LOC: M LAB 13:48
PROVIDERS: ATTEND Nurse Practitioner Family
DX: Z94.0 Kidney transplant status (principal); Z79.899 Other long term (current) drug therapy

== ENCOUNTER → 2024-05-07 | Outpatient (REF) | payer BC, OTHER ==
[2024-05-07 19:09] LABS: ALBUMIN 3.8 G/DL (3.2-5.2); BILIRUBIN,DIRECT 0.2 MG/DL (<0.4); BILIRUBIN,TOTAL 0.6 MG/DL (0.3-1.2); TOTAL PROTEIN 6.1 G/DL (5.7-8.2)
[2024-05-08 10:59] LABS: FOLATE 13.7 NG/ML (>5.4)
== END ==
LOC: M LAB REF 17:13
PROVIDERS: ATTEND Nurse Practitioner Family
DX: Z94.0 Kidney transplant status (principal)

== ENCOUNTER → 2024-05-12 | Outpatient (CLI) | payer BC, MEDICARE ==
[2024-05-12 15:28] LABS: APPEARANCE, URINE CLEAR (CLEAR); BACTERIA, URINE AUTO NEGATIVE (NEGATIVE); BILIRUBIN, URINE AUTO NEGATIVE (NEGATIVE); BLOOD, URINE BLOOD NEGATIVE (NEGATIVE); COLOR, URINE YELLOW (YELLOW); GLUCOSE, URINE (UA) AUTO NEGATIVE (NEGATIVE); KETONE, URINE AUTO NEGATIVE (NEGATIVE); LEUKOCYTE ESTERASE, URINE AUTO NEGATIVE (NEGATIVE); NITRITE, URINE AUTO NEGATIVE (NEGATIVE); PROTEIN, URINE AUTO NEGATIVE (NEGATIVE); RBC, URINE AUTO 0 /HPF (0-3); SQUAMOUS EPITHELIAL CELL UR AU 0 /HPF (0-6); UROBILINOGEN, URINE AUTO 0.2 mg/dL (0.0-2.0); WBC, URINE AUTO 1 /HPF (0-3)
[2024-05-12 15:32] LABS: BASO % 0.3 % (0.0-1.0); EOS # 0.3 10^3/uL (0.0-0.5); EOS % 3.8 % (0.0-3.0); HEMATOCRIT 43.4 % (42.0-52.0); HEMOGLOBIN 14.7 g/dl (13.5-17.5); LYMPH # 2.1 10^3/uL (1.5-5.0); MEAN CORPUSCULAR HEMOGLOBIN 32.6 pg (27.0-33.0); MEAN CORPUSCULAR HGB CONC 33.9 g/dl (32.0-36.5); MEAN CORPUSCULAR VOLUME 96.2 fl (80.0-96.0); MONO # 0.6 10^3/uL (0.0-0.8); MONO % 8.9 % (2.0-8.0); NEUTROPHILS # 3.8 10^3/uL (1.5-8.5); NEUTROPHILS % 55.7 % (36.0-66.0); PLATELET COUNT, AUTOMATED 158 10^3/uL (150-450); RED BLOOD COUNT 4.51 10^6/uL (4.30-6.10); WHITE BLOOD COUNT 6.9 10^3/uL (4.0-10.0)
[2024-05-12 15:56] LABS: TOTAL PROTEIN,RANDOM URINE 10.5 MG/DL (0.0-14.0)
[2024-05-12 16:01] LABS: ALBUMIN 3.8 G/DL (3.2-5.2); ALKALINE PHOSPHATASE 38 U/L (46-116); ALT/SGPT 19 U/L (7.0-40); AST/SGOT 13 U/L (<34); BILIRUBIN,DIRECT 0.3 MG/DL (<0.4); BILIRUBIN,TOTAL 0.8 MG/DL (0.3-1.2); BLOOD UREA NITROGEN 19 MG/DL (9-23); CALCIUM LEVEL 8.8 MG/DL (8.3-10.6); CARBON DIOXIDE LEVEL 26 MMOL/L (20-31); CHLORIDE LEVEL 111 MMOL/L (98-107); CREATININE FOR GFR 1.29 MG/DL (0.70-1.30); GLOMERULAR FILTRATION RATE > 60.0 (>49); GLUCOSE, FASTING 80 MG/DL (74-106); MAGNESIUM LEVEL 1.9 MG/DL (1.8-2.4); PHOSPHORUS LEVEL 2.3 MG/DL (2.4-5.1); POTASSIUM SERUM 4.1 MMOL/L (3.5-5.1); SODIUM LEVEL 142 MMOL/L (136-145); TOTAL PROTEIN 6.1 G/DL (5.7-8.2)
[2024-05-12 16:01] LABS: CREATININE,RANDOM URINE 58.4 MG/DL
[2024-05-15 20:53] LABS: CMV QUANT DNA PCR (PLASMA) Not Detected; CMV SOURCE Whole Blood; log10 CMV QN DNA P1 Not Detected log IU/mL
== END ==
LOC: M LAB 14:09
PROVIDERS: ATTEND Nurse Practitioner Family
DX: D84.9 Immunodeficiency, unspecified (principal); N18.5 Chronic kidney disease, stage 5; Z94.0 Kidney transplant status; Z79.899 Other long term (current) drug therapy

== ENCOUNTER 2024-05-23 09:30 | Outpatient (CLI) | payer BC ==
[~2024-05-23] VITALS: Ht 182.9 cm; Wt 115.0 kg
[2024-05-23 09:30] VITALS: BP 133/62; O2SAT 96
[2024-05-23] MEDS: NS IV ONE (09:47)
[2024-05-23] MEDS: BELATACEPT IV ONE (09:47)
[2024-05-23 10:26] VITALS: BP 132/62; O2SAT 96
== END 2024-05-23 10:30 ==
LOC: M INFU 09:30
PROVIDERS: ATTEND Nurse Practitioner Family
DX: Z94.0 Kidney transplant status (principal)
CPT/HCPCS: 96365; J0485

== ENCOUNTER → 2024-06-06 | Outpatient (REF) | payer BC, OTHER ==
[2024-06-06 19:33] LABS: ALBUMIN 3.6 G/DL (3.2-5.2); BILIRUBIN,DIRECT 0.2 MG/DL (<0.4); BILIRUBIN,TOTAL 0.5 MG/DL (0.3-1.2); TOTAL PROTEIN 6.3 G/DL (5.7-8.2)
== END ==
LOC: M LAB REF 17:20
PROVIDERS: ATTEND Nurse Practitioner Family
DX: Z94.0 Kidney transplant status (principal)

== ENCOUNTER → 2024-06-09 | Outpatient (CLI) | payer BC | LOC: M RAD 12:22 | PROVIDERS: ATTEND Nurse Practitioner Family | DX: R05.1 Acute cough (principal) ==

== ENCOUNTER 2024-06-20 07:45 | Outpatient (CLI) | payer BC ==
[~2024-06-20] VITALS: Ht 182.9 cm; Wt 115.0 kg
[2024-06-20 07:45] VITALS: BP 112/54; O2SAT 95
[2024-06-20] MEDS: BELATACEPT IV ONE (08:26)
[2024-06-20] MEDS: NS IV ONE (08:26)
[2024-06-20 09:06] VITALS: BP 128/60; O2SAT 96
== END 2024-06-20 09:10 ==
LOC: M INFU 07:45
PROVIDERS: ATTEND Nurse Practitioner Family
DX: Z94.0 Kidney transplant status (principal)
CPT/HCPCS: 96365; J0485

== ENCOUNTER 2024-07-18 09:20 | Outpatient (CLI) | payer BC, MEDICARE ==
[~2024-07-18] VITALS: Ht 182.9 cm; Wt 115.0 kg
[2024-07-18 09:20] VITALS: BP 124/61; O2SAT 100
[2024-07-18] MEDS: NS IV ONE (10:26)
[2024-07-18] MEDS: BELATACEPT IV ONE (10:26)
[2024-07-18 11:15] VITALS: BP 135/66; O2SAT 97
== END 2024-07-18 11:15 ==
LOC: M INFU 09:20
PROVIDERS: ATTEND Nurse Practitioner Family
DX: Z94.0 Kidney transplant status (principal)
CPT/HCPCS: 96365; J0485

== ENCOUNTER 2024-08-15 09:46 | Outpatient (CLI) | payer BC ==
[~2024-08-15] VITALS: Ht 188 cm; Wt 112.7 kg
[2024-08-15 09:50] VITALS: BP 127/62; O2SAT 98
[2024-08-15] MEDS: BELATACEPT IV ONE (10:22)
[2024-08-15] MEDS: NS IV ONE (10:22)
[2024-08-15 11:00] VITALS: BP 159/74; O2SAT 97
== END 2024-08-15 11:00 ==
LOC: M INFU 09:46
PROVIDERS: ATTEND Nurse Practitioner Family
DX: Z94.0 Kidney transplant status (principal)
CPT/HCPCS: 96365; J0485

== ENCOUNTER → 2024-09-01 | Outpatient (CLI) | payer BC | LOC: M LAB 11:18 | PROVIDERS: ATTEND Nurse Practitioner Adult Health | DX: E87.6 Hypokalemia (principal) ==

== ENCOUNTER 2024-09-17 15:00 | Outpatient (CLI) | payer BC ==
[~2024-09-17] VITALS: Ht 182.9 cm; Wt 112.3 kg
[2024-09-17 15:00] VITALS: BP 119/64; O2SAT 97
[2024-09-17] MEDS: NS IV ONE (15:36)
[2024-09-17] MEDS: BELATACEPT IV ONE (15:36)
[2024-09-17 16:15] VITALS: BP 131/70; O2SAT 97
== END 2024-09-17 16:15 ==
LOC: M INFU 15:00
PROVIDERS: ATTEND Nurse Practitioner Family
DX: Z94.0 Kidney transplant status (principal)
CPT/HCPCS: 96365; J0485

== ENCOUNTER 2024-10-17 09:03 | Outpatient (CLI) | payer BC ==
[~2024-10-17] VITALS: Ht 182.9 cm; Wt 112.0 kg
[2024-10-17 09:10] VITALS: BP 126/60; O2SAT 97
[2024-10-17] MEDS: NS IV ONE (09:49)
[2024-10-17] MEDS: BELATACEPT IV ONE (09:49)
[2024-10-17 10:25] VITALS: BP 137/64; O2SAT 96
== END 2024-10-17 10:25 ==
LOC: M INFU 09:03
PROVIDERS: ATTEND Nurse Practitioner Family
DX: Z94.0 Kidney transplant status (principal)
CPT/HCPCS: 96365; J0485

== ENCOUNTER → 2024-10-29 | Outpatient (CLI) | payer BC ==
[2024-10-29 10:05] LABS: BASO % 0.6 % (0.0-1.0); EOS # 0.3 10^3/uL (0.0-0.5); HEMOGLOBIN 15.2 g/dl (13.5-17.5); LYMPH # 1.8 10^3/uL (1.5-5.0); LYMPH % 35.4 % (24.0-44.0); MEAN CORPUSCULAR HEMOGLOBIN 31.5 pg (27.0-33.0); MEAN CORPUSCULAR VOLUME 95.2 fl (80.0-96.0); MONO # 0.5 10^3/uL (0.0-0.8); MONO % 9.3 % (2.0-8.0); NEUTROPHILS # 2.4 10^3/uL (1.5-8.5); NEUTROPHILS % 48.5 % (36.0-66.0); PLATELET COUNT, AUTOMATED 170 10^3/uL (150-450); RED BLOOD COUNT 4.83 10^6/uL (4.30-6.10)
[2024-10-29 10:38] LABS: ALBUMIN 3.6 G/DL (3.2-5.2); BILIRUBIN,TOTAL 0.5 MG/DL (0.3-1.2); CALCIUM LEVEL 8.8 MG/DL (8.3-10.6); CREATININE FOR GFR 1.34 MG/DL (0.70-1.30); GLOMERULAR FILTRATION RATE 57.7 (>49); POTASSIUM SERUM 3.5 MMOL/L (3.5-5.1); TOTAL PROTEIN 5.9 G/DL (5.7-8.2)
[2024-10-29 10:39] LABS: IMMUNOGLOBULIN A 101.9 MG/DL (40-350); IMMUNOGLOBULIN M 82.8 MG/DL (50-300)
[2024-10-30 16:12] LABS: T P ELECTROPHORESIS SO 5.9 g/dL (6.1-8.1)
[2024-10-31 12:37] LABS: FREE KAPPA LIGHT CHAINS SERUM 36.6 mg/L (3.3-19.4); FREE LAMBDA LIGHT CHAINS SERUM 24.4 mg/L (5.7-26.3)
== END ==
LOC: M LAB 09:05
PROVIDERS: ATTEND Nurse Practitioner Family
DX: D47.2 Monoclonal gammopathy (principal)

== ENCOUNTER 2024-11-14 09:10 | Outpatient (CLI) | payer BC ==
[~2024-11-14] VITALS: Ht 182.9 cm; Wt 113.0 kg
[2024-11-14 09:09] VITALS: BP 119/66; O2SAT 97
[2024-11-14] MEDS: NS IV ONE (09:49)
[2024-11-14] MEDS: BELATACEPT IV ONE (09:49)
[2024-11-14 10:27] VITALS: BP 138/71; O2SAT 95
== END 2024-11-14 10:30 ==
LOC: M INFU 09:10
PROVIDERS: ATTEND Nurse Practitioner Family
DX: Z94.0 Kidney transplant status (principal)
CPT/HCPCS: 96365; J0485

== ENCOUNTER → 2024-12-10 | Outpatient (REF) | payer OTHER ==
[2024-12-10 18:45] LABS: IMMUNOGLOBULIN A 108.3 MG/DL (40-350)
[2024-12-10 18:46] LABS: ALBUMIN 3.8 G/DL (3.2-5.2); BILIRUBIN,TOTAL 0.6 MG/DL (0.3-1.2); CALCIUM LEVEL 9.1 MG/DL (8.3-10.6); CREATININE FOR GFR 1.36 MG/DL (0.70-1.30); GLOMERULAR FILTRATION RATE 56.7 (>49); IMMUNOGLOBULIN M 93.3 MG/DL (50-300); POTASSIUM SERUM 4.1 MMOL/L (3.5-5.1); TOTAL PROTEIN 6.5 G/DL (5.7-8.2)
[2024-12-12 09:02] LABS: T P ELECTROPHORESIS SO 6.4 g/dL (6.1-8.1)
== END ==
LOC: M LAB REF 17:19
PROVIDERS: ATTEND Nurse Practitioner Family
DX: D47.2 Monoclonal gammopathy (principal)

== ENCOUNTER 2024-12-12 09:05 | Outpatient (CLI) | payer BC ==
[~2024-12-12] VITALS: Ht 182.9 cm; Wt 118.0 kg
[2024-12-12 09:05] VITALS: BP 130/59; O2SAT 94
[2024-12-12] MEDS: BELATACEPT IV ONE (09:53)
[2024-12-12] MEDS: NS IV ONE (09:53)
[2024-12-12 10:35] VITALS: BP_SYST 127; BP_SYST 164; BP_DIAS 74; O2SAT 96
== END 2024-12-12 10:35 ==
LOC: M INFU 09:05
PROVIDERS: ATTEND Nurse Practitioner Family
DX: Z94.0 Kidney transplant status (principal)
CPT/HCPCS: 96365; J0485

== ENCOUNTER → 2025-01-07 | Outpatient (REF) | payer BC ==
[2025-01-07 17:41] LABS: CHOLESTEROL RISK RATIO 4.51 (<5); HDL CHOLESTEROL 28.8 MG/DL (>40); LDL CHOLESTEROL 59.6 MG/DL (<100); NON-HDL-C 101.2 MG/DL
== END ==
LOC: M LAB REF 17:07
PROVIDERS: ATTEND Physician Assistant
DX: E78.2 Mixed hyperlipidemia (principal)

== ENCOUNTER 2025-01-09 09:15 | Outpatient (CLI) | payer BC ==
[~2025-01-09] VITALS: Ht 182.9 cm; Wt 118.0 kg
[2025-01-09 09:00] VITALS: BP 107/53; O2SAT 98
[2025-01-09] MEDS: BELATACEPT IV ONE (10:13)
[2025-01-09] MEDS: NS IV ONE (10:13)
[2025-01-09 10:54] VITALS: BP 131/60; O2SAT 94
== END 2025-01-09 10:55 ==
LOC: M INFU 09:15
PROVIDERS: ATTEND Nurse Practitioner Family
DX: Z94.0 Kidney transplant status (principal)
CPT/HCPCS: 96365; J0485

== ENCOUNTER → 2025-01-29 | Outpatient (CLI) | payer BC, OTHER | LOC: M RAD 14:47 | PROVIDERS: ATTEND Nurse Practitioner Family | DX: M79.602 Pain in left arm (principal); Z95.828 Presence of other vascular implants and grafts ==

== ENCOUNTER 2025-02-06 09:05 | Outpatient (CLI) | payer BC ==
[~2025-02-06] VITALS: Ht 182.9 cm; Wt 118.0 kg
[~2025-02-06 09:05] MED LIST changes: +AMLO-751 PO; -AMLO10TA PO
[2025-02-06 09:30] VITALS: BP 110/57; O2SAT 98
[2025-02-06] MEDS: NS IV ONE (10:18)
[2025-02-06] MEDS: BELATACEPT IV ONE (10:18)
[2025-02-06 10:58] VITALS: BP 116/62; O2SAT 98
== END 2025-02-06 11:00 | disposition home or self-care (01) ==
LOC: M INFU 09:05
PROVIDERS: ATTEND Nurse Practitioner Family
DX: Z94.0 Kidney transplant status (principal)
CPT/HCPCS: 96365; J0485

== ENCOUNTER → 2025-02-16 | Outpatient (CLI) | payer BC ==
[2025-02-16 09:54] LABS: BASO % 0.6 % (0.0-1.0); EOS # 0.4 10^3/uL (0.0-0.5); EOS % 7.4 % (0.0-3.0); HEMATOCRIT 45.2 % (42.0-52.0); HEMOGLOBIN 15.2 g/dl (13.5-17.5); LYMPH # 1.7 10^3/uL (1.5-5.0); LYMPH % 32.3 % (24.0-44.0); MEAN CORPUSCULAR HEMOGLOBIN 32.2 pg (27.0-33.0); MEAN CORPUSCULAR HGB CONC 33.6 g/dl (32.0-36.5); MEAN CORPUSCULAR VOLUME 95.8 fl (80.0-96.0); MONO # 0.5 10^3/uL (0.0-0.8); NEUTROPHILS # 2.7 10^3/uL (1.5-8.5); NEUTROPHILS % 49.5 % (36.0-66.0); PLATELET COUNT, AUTOMATED 166 10^3/uL (150-450); RED BLOOD COUNT 4.72 10^6/uL (4.30-6.10); WHITE BLOOD COUNT 5.4 10^3/uL (4.0-10.0)
[2025-02-16 10:21] LABS: ALBUMIN 3.6 G/DL (3.2-5.2); BILIRUBIN,TOTAL 0.5 MG/DL (0.3-1.2); CALCIUM LEVEL 8.6 MG/DL (8.3-10.6); CHOLESTEROL RISK RATIO 4.33 (<5); CREATININE FOR GFR 1.46 MG/DL (0.70-1.30); GLOMERULAR FILTRATION RATE 54.4 (>49); HDL CHOLESTEROL 25.4 MG/DL (>40); LDL CHOLESTEROL 60.2 MG/DL (<100); NON-HDL-C 84.6 MG/DL; POTASSIUM SERUM 3.6 MMOL/L (3.5-5.1); TOTAL PROTEIN 5.8 G/DL (5.7-8.2)
[2025-02-16 11:12] LABS: HEMOGLOBIN A1c 8.2 % (4.0-6.0)
== END ==
LOC: M LAB 08:37
DX: E11.9 Type 2 diabetes mellitus without complications (principal); D64.9 Anemia, unspecified; E66.9 Obesity, unspecified; E78.5 Hyperlipidemia, unspecified; Z79.899 Other long term (current) drug therapy; Z12.5 Encounter for screening for malignant neoplasm of prostate

== ENCOUNTER 2025-05-01 08:57 | Outpatient (CLI) | payer BC ==
[~2025-05-01] VITALS: Ht 182.9 cm; Wt 109.0 kg
[2025-05-01 09:15] VITALS: BP 122/59; O2SAT 100
[2025-05-01] MEDS: BELATACEPT IV ONE (09:59)
[2025-05-01] MEDS: NS IV ONE (09:59)
[2025-05-01 10:45] VITALS: BP 145/67; O2SAT 98
== END 2025-05-01 10:45 | disposition home or self-care (01) ==
LOC: M INFU 08:57
PROVIDERS: ATTEND Nurse Practitioner Family
DX: Z94.0 Kidney transplant status (principal)
CPT/HCPCS: 96365; J0485

== ENCOUNTER 2025-06-01 15:09 | Outpatient (CLI) | payer BC ==
[~2025-06-01] VITALS: Ht 182.9 cm; Wt 110.5 kg
[~2025-06-01 15:09] MED LIST changes: +ASPI81TA26 PO; +BELATACEPT IV ONE; +CARV12.5 PO; +CYAN-11 PO; +FAMO1TAB11 PO; +FURO20TA2 PO; +INSUH10VL SC; +MYCO250C PO; +NS IV ONE; +PRED5PAK2 PO; +TIRZ12.5 SQ; +TRES1INJ SC
[2025-06-01 15:15] VITALS: BP 130/61; O2SAT 99
[2025-06-01] MEDS: BELATACEPT IV ONE (16:07)
[2025-06-01] MEDS: NS IV ONE (16:07)
[2025-06-01 16:40] VITALS: BP 132/62; O2SAT 97
== END 2025-06-01 16:45 ==
LOC: M INFU 15:09
PROVIDERS: ATTEND Nurse Practitioner Family
DX: Z94.0 Kidney transplant status (principal)
CPT/HCPCS: 96365; J0485

== ENCOUNTER 2025-06-09 08:41 | Day surgery (SDC) | payer BC ==
[~2025-06-09] VITALS: Ht 182.9 cm; Wt 110.2 kg
[~2025-06-09 08:41] MED LIST changes: -BELATACEPT IV ONE; -NS IV ONE
[2025-06-09 10:20] VITALS: TEMP 98.6
[2025-06-09 10:38] VITALS: BP 126/61; O2SAT 94
== END 2025-06-09 10:40 | disposition home or self-care (01) ==
LOC: M OPP 08:41
PROVIDERS: ATTEND Surgery
DX: Z12.11 Encounter for screening for malignant neoplasm of colon (principal); K64.0 First degree hemorrhoids; Z79.82 Long term (current) use of aspirin; Z79.4 Long term (current) use of insulin; Z79.52 Long term (current) use of systemic steroids; Z79.85 Long-term (current) use of injectable non-insulin antidiabetic drugs; Z79.899 Other long term (current) drug therapy; Z86.73 Personal history of transient ischemic attack (TIA), and cerebral infarction without residual deficits

== ENCOUNTER → 2025-06-24 | Outpatient (CLI) | payer BC ==
[2025-06-24 16:49] LABS: BASO # 0.0 10^3/uL (0.0-0.2); BASO % 0.5 % (0.0-1.0); EOS # 0.2 10^3/uL (0.0-0.5); EOS % 2.6 % (0.0-3.0); LYMPH # 2.2 10^3/uL (1.5-5.0); LYMPH % 35.8 % (24.0-44.0); MONO # 0.6 10^3/uL (0.0-0.8); MONO % 9.3 % (2.0-8.0); NEUTROPHILS # 3.1 10^3/uL (1.5-8.5); NEUTROPHILS % 51.1 % (36.0-66.0); PLATELET COUNT, AUTOMATED 179 10^3/uL (150-450)
[2025-06-24 16:49] LABS: AMORPHOUS SEDIMENT SMALL (NEGATIVE); APPEARANCE, URINE CLEAR (CLEAR); BACTERIA, URINE AUTO NEGATIVE (NEGATIVE); BILIRUBIN, URINE AUTO NEGATIVE (NEGATIVE); BLOOD, URINE BLOOD NEGATIVE (NEGATIVE); GLUCOSE, URINE (UA) AUTO NEGATIVE (NEGATIVE); KETONE, URINE AUTO NEGATIVE (NEGATIVE); LEUKOCYTE ESTERASE, URINE AUTO NEGATIVE (NEGATIVE); MUCUS, URINE SMALL (NEGATIVE); NITRITE, URINE AUTO NEGATIVE (NEGATIVE); PROTEIN, URINE AUTO 1+ mg/dL (NEGATIVE); RBC, URINE AUTO 1 /HPF (0-3); SPECIFIC GRAVITY URINE AUTO 1.017 (1.002-1.035); SQUAMOUS EPITHELIAL CELL UR AU 0 /HPF (0-6); UROBILINOGEN, URINE AUTO 2.0 mg/dL (0.0-2.0); WBC, URINE AUTO 1 /HPF (0-3)
[2025-06-24 17:16] LABS: TOTAL PROTEIN,RANDOM URINE 28.8 MG/DL (0.0-14.0)
[2025-06-24 17:21] LABS: ALT/SGPT 20.0 U/L (7.0-40); AST/SGOT 21.0 U/L (<34); CALCIUM LEVEL 9.1 MG/DL (8.3-10.6); CARBON DIOXIDE LEVEL 27.0 MMOL/L (20-31); CHLORIDE LEVEL 108.0 MMOL/L (98-107); CREATININE FOR GFR 1.73 MG/DL (0.70-1.30); GLOMERULAR FILTRATION RATE 44.1 (>49); MAGNESIUM LEVEL 2.0 MG/DL (1.8-2.4); PHOSPHORUS LEVEL 2.8 MG/DL (2.4-5.1); POTASSIUM SERUM 4.5 MMOL/L (3.5-5.1); SODIUM LEVEL 144.0 MMOL/L (136-145)
== END ==
LOC: M LAB 15:59
PROVIDERS: ATTEND Nurse Practitioner Family
DX: Z94.0 Kidney transplant status (principal); N18.5 Chronic kidney disease, stage 5; D84.9 Immunodeficiency, unspecified; Z79.899 Other long term (current) drug therapy

== ENCOUNTER → 2025-06-26 | Outpatient (CLI) | payer BC ==
[2025-06-26 15:31] LABS: BASO # 0.0 10^3/uL (0.0-0.2); BASO % 0.4 % (0.0-1.0); EOS # 0.2 10^3/uL (0.0-0.5); EOS % 3.5 % (0.0-3.0); LYMPH # 1.7 10^3/uL (1.5-5.0); LYMPH % 33.5 % (24.0-44.0); MONO # 0.4 10^3/uL (0.0-0.8); MONO % 7.9 % (2.0-8.0); NEUTROPHILS # 2.8 10^3/uL (1.5-8.5); NEUTROPHILS % 54.5 % (36.0-66.0); PLATELET COUNT, AUTOMATED 164 10^3/uL (150-450)
[2025-06-26 15:52] LABS: ALT/SGPT 18.0 U/L (7.0-40); AST/SGOT 17.0 U/L (<34); CALCIUM LEVEL 9.2 MG/DL (8.3-10.6); CARBON DIOXIDE LEVEL 25.0 MMOL/L (20-31); CHLORIDE LEVEL 105.0 MMOL/L (98-107); CREATININE FOR GFR 1.5 MG/DL (0.70-1.30); GLOMERULAR FILTRATION RATE 52.3 (>49); POTASSIUM SERUM 4.3 MMOL/L (3.5-5.1); SODIUM LEVEL 139.0 MMOL/L (136-145)
[2025-06-28 07:01] LABS: T P ELECTROPHORESIS SO 6.0 g/dL (6.1-8.1)
[2025-06-29 14:28] LABS: FREE KAPPA LIGHT CHAINS SERUM 32.4 mg/L (3.3-19.4); FREE LAMBDA LIGHT CHAINS SERUM 22.6 mg/L (5.7-26.3); KAPPA/LAMBDA RATIO SERUM 1.43 (0.26-1.65)
== END ==
LOC: M LAB 14:14
PROVIDERS: ATTEND Nurse Practitioner Family
DX: D47.2 Monoclonal gammopathy (principal)

== ENCOUNTER 2025-07-01 09:32 | Outpatient (CLI) | payer BC ==
[~2025-07-01] VITALS: Ht 182.9 cm; Wt 110.0 kg
[2025-07-01 09:59] VITALS: BP 133/63; O2SAT 97
[2025-07-01] MEDS: BELATACEPT IV ONE (10:49)
[2025-07-01] MEDS: NS IV ONE (10:49)
[2025-07-01 11:25] VITALS: BP 124/60; O2SAT 96
== END 2025-07-01 11:25 ==
LOC: M INFU 09:32
PROVIDERS: ATTEND Nurse Practitioner Family
DX: Z94.0 Kidney transplant status (principal)
CPT/HCPCS: 96365; J0485

== ENCOUNTER 2025-07-29 09:59 | Outpatient (CLI) | payer BC ==
[~2025-07-29] VITALS: Ht 182.9 cm; Wt 109.0 kg
[2025-07-29 10:05] VITALS: BP 133/63; O2SAT 98
[2025-07-29] MEDS: BELATACEPT IV ONE (11:17)
[2025-07-29] MEDS: NS IV ONE (11:17)
[2025-07-29 12:00] VITALS: BP 136/63; O2SAT 98
== END 2025-07-29 12:00 ==
LOC: M INFU 09:59
PROVIDERS: ATTEND Nurse Practitioner Family
DX: Z94.0 Kidney transplant status (principal)
CPT/HCPCS: 96365; J0485

== ENCOUNTER 2025-08-26 09:32 | Outpatient (CLI) | payer BC ==
[~2025-08-26] VITALS: Ht 182.9 cm; Wt 106.8 kg
[2025-08-26 09:55] VITALS: BP 98/55; O2SAT 98
[2025-08-26] MEDS: NS IV ONE (10:42)
[2025-08-26] MEDS: BELATACEPT IV ONE (10:42)
== END 2025-08-26 11:22 ==
LOC: M INFU 09:32
PROVIDERS: ATTEND Internal Medicine
DX: Z94.0 Kidney transplant status (principal)
CPT/HCPCS: 96365; J0485

== ENCOUNTER 2025-09-23 09:42 | Outpatient (CLI) | payer BC ==
[~2025-09-23] VITALS: Ht 182.9 cm; Wt 106.8 kg
[2025-09-23] MEDS: BELATACEPT IV ONE (10:47)
[2025-09-23] MEDS: NS IV ONE (10:47)
[2025-09-23 10:48] VITALS: BP 111/57; O2SAT 96
[2025-09-23 11:28] VITALS: BP 140/64; O2SAT 96
== END 2025-09-23 11:30 | disposition home or self-care (01) ==
LOC: M INFU 09:42
PROVIDERS: ATTEND Nurse Practitioner Family
DX: Z94.0 Kidney transplant status (principal)
CPT/HCPCS: 96365; J0485